=== PATIENT | female | born 1975 | race Caucasian/White ===

== ENCOUNTER 2016-10-06 17:33 | Emergency (ER) | payer OTHER, SELFPAY ==
--- NOTE | 2016-10-06 20:18 | EDDOCDS ---
Nurse's Notes [facility] Name: Sasha Calderon Age: 40 yrs Sex: Female : 1975 Arrival Date: 10/06/2016 Time: 17:33 Bed Triage 2 Private MD: [facility] - Adults Diagnosis: Acute nasopharyngitis [common cold] Presentation: 10/06 17:50 Presenting complaint: Patient states: she's sick - having lower abdominal pain - on her kcs sides - coughing. Positive home test. Adult Sepsis Screening: The patient does not have new or worsening altered mentation. Patient's respiratory rate is less than 22. Systolic blood pressure is greater than 100. Patient has a qSOFA score of 0- Negative Sepsis Screen. Suicide/Homicide risk assessment- the patient denies having any suicidal and/or homicidal ideations and does not present with any other emotional, behavioral or mental health complaints. 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 Transition of care: patient was not received from another setting of care. 17:50 Acuity: MARTHA Level 3 kcs 17:50 Method Of Arrival: Walkin/Carried/Asstd kcs Triage Assessment: 17:53 General: Appears comfortable, well developed, well nourished, well groomed, Behavior is kcs cooperative, pleasant. Pain: Location: sides of abdomen Pain currently is 5 out of 10 on a pain scale. HIV screening NA for this visit Offered previously. Neurological: Level of Consciousness is awake, alert. Respiratory: Airway is patent Respiratory effort is even, unlabored, Respiratory pattern is regular, symmetrical. Respiratory: harsh dry cough. Derm: Skin is intact, is healthy with good turgor, Skin is dry, Skin is normal. 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 Ventolin Rotahaler/Rotacaps Inhl 200 mcg daily 2. ProAir HFA 90 mcg/actuation inhalation HFAA 2 puffs every 4 hours as needed - PMHx: Asthma; - PSHx: none; - Social history: Smoking status: Patient uses tobacco products, light tobacco smoker. No barriers to communication noted, The patient speaks fluent Serbian. - Family history: No immediate family members are acutely ill. - : The pt / caregiver states he / she is not on anticoagulants. Home medication list is obtained from the patient, [employer] import data. - Exposure Risk Screening:: None identified. Screenin:15 Screening information is obtained from the patient. Fall risk: No risks identified. ld5 Assistance ADL's: requires no assistance with activities of daily living. Abuse/DV Screen: The patient / caregiver reports he/she is: not in a situation that causes fear, pain or injury. Nutritional screening: No deficits noted. Advance Directives: There is no active DNR order. home support is adequate. Assessment: 20:15 General: First contact with pt. Paperwork discussed with pt. Respirations easy and ld5 unlabored. Pt reports nasal congestion but was unsure of what medications she could take after positive test. Neurological: Level of Consciousness is awake, alert. : Denies vaginal bleeding. Vital Signs: 17:35 BP 117 / 80; Pulse 99; Resp 18; Temp 98.8(O); Pulse Ox 100% ; Weight 90.72 kg; Height 5 cmb ft. 10 in. (177.80 cm); Pain 5/10; 17:35 Body Mass Index 28.70 (90.72 kg, 177.80 cm) cmb Vitals: 17:35 Log In Time: October 06, 2016 at 17:30. cmb ED Course: 17:34 Patient visited by Colleen Guillen. cmb 17:34 Patient moved to Waiting cmb 17:35 [facility] is Private Physician. cmb 17:36 Patient moved to Pre RCE cmb 17:51 Triage Initiated kcs 19:02 Patient moved to Triage 2 rs3 20:00 Mitchel Wooten PA is PHCP. btw 20:00 Oscar Lopez DO is Attending Physician. btw 20:00 Patient visited by Mitchel Wooten PA. btw 20:09 [facility] is Referral Physician. btw 20:15 The patient / caregiver is instructed regarding the plan of care and ED course. ld5 20:15 No IV's were initiated during this patient's visit. No procedures done that require ld5 assistance. 20:17 Patient visited by Diana Parry RN. ld5 Order Results: There are currently no results for this order. Outcome: 20:10 Discharge ordered by Provider. [facility] 20:15 Discharge Assessment: Patient awake, alert and oriented x 3. No cognitive and/or ld5 functional deficits noted. Patient verbalized understanding of disposition instructions. patient administered narcotics - no. The following High Risk Discharge criteria are identified: None. Discharged to home ambulatory. Condition: stable. Discharge instructions given to patient, Instructed on discharge instructions, follow up and referral plans. Demonstrated understanding of instructions, Pt was receptive of discharge instructions/ teaching. No special radiology studies were completed. Property :Personal belongings accompany Pt. 20:17 Patient left the ED. ld5 Signatures: Lazara Ugalde RN RN kcs Meghann PeraltaRN RN rs3 Mitchel Wooten PA PA btw Diana Parry RN RN ld5 Colleen Guillen Corrections: (The following items were deleted from the chart) 17:58 17:50 Presenting complaint: Patient states: she's sick - having lower abdominal pain - kcs on her sides - coughing. kcs MTDD
--- NOTE | 2016-10-06 20:18 | EDDOCDS ---
Physician Documentation [facility] Name: Sasha Calderon Age: 40 yrs Sex: Female : 1975 Arrival Date: 10/06/2016 Time: 17:33 Bed Triage 2 Private MD: [facility] - Adults Disposition: 10/06/16 20:10 Discharged to Home/Self Care. Impression: Acute nasopharyngitis [common cold]. - Condition is Stable. - Discharge Instructions: Medicines During , Cool Mist Vaporizers, Upper Respiratory Infection, Adult, Lvth-[id number], Viral Infections, Iufo-Fe-Vrwd. - Medication Reconciliation, Local Pharmacy Hours form. - Follow up: [facility] - Adults; When: Call to arrange an appointment; Reason: Further diagnostic work-up, Recheck today's complaints, Continuance of care. - Problem is new. - Symptoms are unchanged. Historical: - Allergies: Codeine Sulfate (Rash); - Home Meds: 1. Ventolin Rotahaler/Rotacaps Inhl 200 mcg daily 2. ProAir HFA 90 mcg/actuation inhalation HFAA 2 puffs every 4 hours as needed - PMHx: Asthma; - PSHx: none; - Social history: Smoking status: Patient uses tobacco products, light tobacco smoker. No barriers to communication noted, The patient speaks fluent Saudi Arabian. - Family history: No immediate family members are acutely ill. - : The pt / caregiver states he / she is not on anticoagulants. Home medication list is obtained from the patient, [employer] import data. - Exposure Risk Screening:: None identified. 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 10 in. (177.80 cm); Pain 5/10; 17:35 Body Mass Index 28.70 (90.72 kg, 177.80 cm) cmb Signatures: Lazara Ugalde RN RN kcs Mitchel Wooten PA PA btw Diana ParryRN RN ld5 MTDD
--- NOTE | 2016-10-08 21:18 | EDDOCDS ---
Nurse's Notes [facility] Name: Sasha Calderon Age: 40 yrs Sex: Female : 1975 Arrival Date: 10/06/2016 Time: 17:33 Bed Triage 2 Private MD: [facility] - Adults Diagnosis: Acute nasopharyngitis [common cold] Presentation: 10/06 17:50 Presenting complaint: Patient states: she's sick - having lower abdominal pain - on her kcs sides - coughing. Positive home test. Adult Sepsis Screening: The patient does not have new or worsening altered mentation. Patient's respiratory rate is less than 22. Systolic blood pressure is greater than 100. Patient has a qSOFA score of 0- Negative Sepsis Screen. Suicide/Homicide risk assessment- the patient denies having any suicidal and/or homicidal ideations and does not present with any other emotional, behavioral or mental health complaints. 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 Transition of care: patient was not received from another setting of care. 17:50 Acuity: MARTHA Level 3 kcs 17:50 Method Of Arrival: Walkin/Carried/Asstd kcs Triage Assessment: 17:53 General: Appears comfortable, well developed, well nourished, well groomed, Behavior is kcs cooperative, pleasant. Pain: Location: sides of abdomen Pain currently is 5 out of 10 on a pain scale. HIV screening NA for this visit Offered previously. Neurological: Level of Consciousness is awake, alert. Respiratory: Airway is patent Respiratory effort is even, unlabored, Respiratory pattern is regular, symmetrical. Respiratory: harsh dry cough. Derm: Skin is intact, is healthy with good turgor, Skin is dry, Skin is normal. 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 Ventolin Rotahaler/Rotacaps Inhl 200 mcg daily 2. ProAir HFA 90 mcg/actuation inhalation HFAA 2 puffs every 4 hours as needed - PMHx: Asthma; - PSHx: none; - Social history: Smoking status: Patient uses tobacco products, light tobacco smoker. No barriers to communication noted, The patient speaks fluent Ukrainian. - Family history: No immediate family members are acutely ill. - : The pt / caregiver states he / she is not on anticoagulants. Home medication list is obtained from the patient, [employer] import data. - Exposure Risk Screening:: None identified. Screenin:15 Screening information is obtained from the patient. Fall risk: No risks identified. ld5 Assistance ADL's: requires no assistance with activities of daily living. Abuse/DV Screen: The patient / caregiver reports he/she is: not in a situation that causes fear, pain or injury. Nutritional screening: No deficits noted. Advance Directives: There is no active DNR order. home support is adequate. Assessment: 20:15 General: First contact with pt. Paperwork discussed with pt. Respirations easy and ld5 unlabored. Pt reports nasal congestion but was unsure of what medications she could take after positive test. Neurological: Level of Consciousness is awake, alert. : Denies vaginal bleeding. Vital Signs: 17:35 BP 117 / 80; Pulse 99; Resp 18; Temp 98.8(O); Pulse Ox 100% ; Weight 90.72 kg; Height 5 cmb ft. 10 in. (177.80 cm); Pain 5/10; 17:35 Body Mass Index 28.70 (90.72 kg, 177.80 cm) cmb Vitals: 17:35 Log In Time: October 06, 2016 at 17:30. cmb ED Course: 17:34 Patient visited by Colleen Guillen. cmb 17:34 Patient moved to Waiting cmb 17:35 [facility] is Private Physician. cmb 17:36 Patient moved to Pre RCE cmb 17:51 Triage Initiated kcs 19:02 Patient moved to Triage 2 rs3 20:00 Mitchel Wooten PA is PHCP. btw 20:00 Oscar Lopez DO is Attending Physician. btw 20:00 Patient visited by Mitchel Wooten PA. btw 20:09 [facility] is Referral Physician. btw 20:15 The patient / caregiver is instructed regarding the plan of care and ED course. ld5 20:15 No IV's were initiated during this patient's visit. No procedures done that require ld5 assistance. 20:17 Patient visited by Diana Parry RN. ld5 20:19 [facility] Payment Agreement was scanned into [employer] and attached to record. micah 10/07 10:17 T-Sheet-- Draft Copy was scanned into [employer] and attached to record. gb Order Results: There are currently no results for this order. Outcome: 10/06 20:10 Discharge ordered by Provider. btw 20:15 Discharge Assessment: Patient awake, alert and oriented x 3. No cognitive and/or ld5 functional deficits noted. Patient verbalized understanding of disposition instructions. patient administered narcotics - no. The following High Risk Discharge criteria are identified: None. Discharged to home ambulatory. Condition: stable. Discharge instructions given to patient, Instructed on discharge instructions, follow up and referral plans. Demonstrated understanding of instructions, Pt was receptive of discharge instructions/ teaching. No special radiology studies were completed. Property :Personal belongings accompany Pt. 20:17 Patient left the ED. ld5 Signatures: Lazara Ugalde, RN RN kcs Desi Daly, Reg Reg gb Meghann PeraltaRN RN rs3 Mitchel Wooten PA PA btw Diana Parry RN RN ld5 Colleen Guillen Gabriela gjb Corrections: (The following items were deleted from the chart) 17:58 17:50 Presenting complaint: Patient states: she's sick - having lower abdominal pain - kcs on her sides - coughing. kcs Chart Complete MTDD
--- NOTE | 2016-10-08 21:18 | EDDOCDS ---
Physician Documentation [facility] Name: Sasha Calderon Age: 40 yrs Sex: Female : 1975 Arrival Date: 10/06/2016 Time: 17:33 Bed Triage 2 Private MD: [facility] - Adults Disposition: 10/06/16 20:10 Discharged to Home/Self Care. Impression: Acute nasopharyngitis [common cold]. - Condition is Stable. - Discharge Instructions: Medicines During , Cool Mist Vaporizers, Upper Respiratory Infection, Adult, Vgms-ch-Yzoy, Viral Infections, Xyzb-Ni-Waaz. - Medication Reconciliation, Local Pharmacy Hours form. - Follow up: [facility] - Adults; When: Call to arrange an appointment; Reason: Further diagnostic work-up, Recheck today's complaints, Continuance of care. - Problem is new. - Symptoms are unchanged. Historical: - Allergies: Codeine Sulfate (Rash); - Home Meds: 1. Ventolin Rotahaler/Rotacaps Inhl 200 mcg daily 2. ProAir HFA 90 mcg/actuation inhalation HFAA 2 puffs every 4 hours as needed - PMHx: Asthma; - PSHx: none; - Social history: Smoking status: Patient uses tobacco products, light tobacco smoker. No barriers to communication noted, The patient speaks fluent Italian. - Family history: No immediate family members are acutely ill. - : The pt / caregiver states he / she is not on anticoagulants. Home medication list is obtained from the patient, [employer] import data. - Exposure Risk Screening:: None identified. 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 10 in. (177.80 cm); Pain 5/10; 17:35 Body Mass Index 28.70 (90.72 kg, 177.80 cm) cmb MDM: 20:19 [place] Payment Agreement was scanned into [employer] and attached to record. [facility] 20:19 Financial registration complete. [facility] 10/07 10:17 T-Sheet-- Draft Copy was scanned into [employer] and attached to record. gb Signatures: Lazara Ugalde, RN RN [facility] Desi Daly, Reg Reg gb Mitchel Wooten PA PA btw Diana Parry RN RN ld5 Shyann Mckeon The chart was reviewed and I authenticate all verbal orders and agree with the evaluation and treatment provided.Attachments: 10/06 20:19 [place] Payment Agreement gjb 10/07 10:17 T-Sheet-- Draft Copy gb Chart Complete MTDD
--- NOTE | 2016-10-08 21:18 | EDDOCDS ---
Physician Documentation [facility] Name: Sasha Calderon Age: 40 yrs Sex: Female : 1975 Arrival Date: 10/06/2016 Time: 17:33 Bed Triage 2 Private MD: [facility] - Adults Disposition: 10/06/16 20:10 Discharged to Home/Self Care. Impression: Acute nasopharyngitis [common cold]. - Condition is Stable. - Discharge Instructions: Medicines During , Cool Mist Vaporizers, Upper Respiratory Infection, Adult, Bcfu-pp-Nhcp, Viral Infections, Kbfn-Mg-Zwru. - Medication Reconciliation, Local Pharmacy Hours form. - Follow up: [facility] - Adults; When: Call to arrange an appointment; Reason: Further diagnostic work-up, Recheck today's complaints, Continuance of care. - Problem is new. - Symptoms are unchanged. Historical: - Allergies: Codeine Sulfate (Rash); - Home Meds: 1. Ventolin Rotahaler/Rotacaps Inhl 200 mcg daily 2. ProAir HFA 90 mcg/actuation inhalation HFAA 2 puffs every 4 hours as needed - PMHx: Asthma; - PSHx: none; - Social history: Smoking status: Patient uses tobacco products, light tobacco smoker. No barriers to communication noted, The patient speaks fluent Indonesian. - Family history: No immediate family members are acutely ill. - : The pt / caregiver states he / she is not on anticoagulants. Home medication list is obtained from the patient, [employer] import data. - Exposure Risk Screening:: None identified. 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 10 in. (177.80 cm); Pain 5/10; 17:35 Body Mass Index 28.70 (90.72 kg, 177.80 cm) cmb MDM: 20:19 [place] Payment Agreement was scanned into [employer] and attached to record. [facility] 20:19 Financial registration complete. [facility] 10/07 10:17 T-Sheet-- Draft Copy was scanned into [employer] and attached to record. gb Signatures: Lazara Ugalde, RN RN [facility] Desi Daly, Reg Reg gb Mitchel Wooten PA PA btw Diana Parry RN RN ld5 Shyann Mckeon The chart was reviewed and I authenticate all verbal orders and agree with the evaluation and treatment provided.Attachments: 10/06 20:19 [place] Payment Agreement gjb 10/07 10:17 T-Sheet-- Draft Copy gb Chart Complete MTDD
== END 2016-10-06 20:17 | disposition home or self-care (01) ==
LOC: M ED 17:33
DX: J06.9 Acute upper respiratory infection, unspecified (principal); J45.909 Unspecified asthma, uncomplicated; F17.210 Nicotine dependence, cigarettes, uncomplicated; Z88.5 Allergy status to narcotic agent

== ENCOUNTER 2016-11-08 09:23 | Emergency (ER) | payer OTHER ==
[~2016-11-08] VITALS: Ht 177.8 cm; Wt 79.4 kg
[2016-11-08] MEDS ORDERED: BUDESONIDE 0.5 MG/2 ML INHALATION SUSPENSION INH ONE (10:00)
--- NOTE | 2016-11-08 10:34 | EDDOCDS ---
Nurse's Notes [facility] Name: Sasha Calderon Age: 40 yrs Sex: Female : 1975 Arrival Date: 11/08/2016 Time: 09:23 Bed PD Private MD: [facility] - Adults Diagnosis: Unspecified asthma with (acute) exacerbation Presentation: 11/08 09:28 Presenting complaint: Patient states: unable to breath today, woke with symptoms. kr3 Patient is aware she is hyperventilating and unable to correct. cold symptoms for several days. Adult Sepsis Screening: The patient does not have new or worsening altered mentation. Patient's respiratory rate is less than 22. Systolic blood pressure is greater than 100. Patient has a qSOFA score of 0- Negative Sepsis Screen. Suicide/Homicide risk assessment- the patient denies having any suicidal and/or homicidal ideations and does not present with any other emotional, behavioral or mental health complaints. 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 Transition of care: patient was not received from another setting of care. 09:28 Acuity: MARTHA Level 3 kr3 09:28 Method Of Arrival: Wheelchair kr3 Triage Assessment: 09:31 General: Appears distressed, Behavior is cooperative. Pain: Denies pain. HIV screening kr3 NA for this visit Offered previously. Neurological: Level of Consciousness is awake, alert. EENT: Reports nasal congestion. Respiratory: Airway is patent Respiratory effort is labored, Reports shortness of breath cough that is non-productive. Derm: Skin is normal. 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 albuterol sulfate 90 mcg/actuation Inhl HFAA 2 puffs (Last dose: 11/08/2016 09:30) - PMHx: Asthma; - PSHx: none; - Social history: Smoking status: Patient uses tobacco products, current every day smoker. No barriers to communication noted, The patient speaks fluent Irish, Speaks appropriately for age. - Family history: Not pertinent. - : The pt / caregiver states he / she is not on anticoagulants. Home medication list is obtained from the patient. - Exposure Risk Screening:: None identified. Screenin:41 Screening information is obtained from the patient. Fall risk: No risks identified. kr3 Assistance ADL's: requires no assistance with activities of daily living. Abuse/DV Screen: The patient / caregiver reports he/she is: not in a situation that causes fear, pain or injury. Nutritional screening: No deficits noted. Advance Directives: Currently, there is no health care proxy. home support is adequate. Assessment: 09:56 General: Appears in no apparent distress, Behavior is anxious, appropriate for age, srm cooperative. Neurological: No deficits noted. Respiratory: Airway is patent Respiratory effort is even, unlabored, Breath sounds are clear bilaterally. dry cough. Derm: No deficits noted. 10:32 Reassessment: Patient states feeling better. kr3 Vital Signs: 09:25 BP 109 / 69; Pulse 96; Resp 18; Temp 98.3(O); Pulse Ox 98% ; Weight 79.38 kg (R); ct3 Height 5 ft. 10 in. (177.80 cm) (R); Pain 9/10; 10:31 BP 110 / 68; Pulse 82; Resp 16; Temp 97.6(T); Pulse Ox 95% on R/A; kr3 09:25 Body Mass Index 25.11 (79.38 kg, 177.80 cm) ct3 Vitals: 09:25 Log In Time: November 08, 2016 at 09:22. ct3 09:56 Heart Tones 171BPM. [facility] ED Course: 09:24 Patient visited by Helga Garcia PCA. ct3 09:24 [facility] is Private Physician. ct3 09:24 Patient moved to Waiting ct3 09:25 Patient moved to Pre RCE ct3 09:28 Patient moved to Triage 3 kr3 09:30 Triage Initiated kr3 09:39 Palmer Penn PA-C is PHCP. cc10 09:39 Berry Zabala MD is Attending Physician. cc10 09:39 Patient visited by Palmer Penn PA-C. cc10 09:39 Patient visited by Palmer Penn PA-C. cc10 09:48 Patient moved to PD2 / mcp 09:57 Patient visited by Rayna Colorado RN. srm 10:22 [facility] is Referral Physician. cc10 10:32 The patient / caregiver is instructed regarding the plan of care and ED course. Patient kr3 has correct armband on for positive identification. 10:32 No IV's were initiated during this patient's visit. No procedures done that require kr3 assistance. Administered Medications: 10:18 Drug: Pulmicort 1 mg Route: Inhalation; cc10 RT: 10:18 Initial Med Neb Given as ordered Patient was instructed and evaluated on procedure. kt1 Respiratory: Breath sounds are diminished bilaterally. Order Results: There are currently no results for this order. Outcome: 10:22 Discharge ordered by Provider. cc10 10:32 Discharge Assessment: patient administered narcotics - no. The following High Risk kr3 Discharge criteria are identified: None. Discharged to home ambulatory. Condition: stable. Discharge instructions given to patient, Instructed on discharge instructions, follow up and referral plans. Demonstrated understanding of instructions, medications, Pt was receptive of discharge instructions/ teaching. Prescriptions given X 2. No special radiology studies were completed. Property sent home with patient. 10:33 Patient left the ED. kr3 Signatures: Rayna Colorado, RN RN Joleen De La Cruz, RN Dina Emery mcp kt1 Marilu Flores RN RN kr3 Helga Garcia, CLINICAL OPERATIONS SPECIALIST CLINICAL OPERATIONS SPECIALIST ct3 Palmer Penn PA-C PA-C cc10 MTDD
--- NOTE | 2016-11-08 10:34 | EDDOCDS ---
Physician Documentation [facility] Name: Sasha Calderon Age: 40 yrs Sex: Female : 1975 Arrival Date: 11/08/2016 Time: 09:23 Bed PD Private MD: [facility] - Adults Disposition: 11/08/16 10:22 Discharged to Home/Self Care. Impression: Unspecified asthma with (acute) exacerbation. - Condition is Stable. - Discharge Instructions: Asthma, Adult. - Prescriptions for Pulmicort 0.5 mg/2 mL Inhalation suspension for nebulization - inhale 2 milliliter by NEBULIZATION route 2 times per day As needed; 1 box. dextromethorphan- guaifenesin 30-200 mg/5 mL Oral liquid - take 5 milliliter by ORAL route every 6 hours As needed as needed; 100 milliliter. - Medication Reconciliation form. - Follow up: [facility] - Adults; When: Call to arrange an appointment; Reason: Wound/Symptom Recheck, Recheck today's complaints, Continuance of care. - Problem is an acute exacerbation. - Symptoms have improved. Historical: - Allergies: Codeine Sulfate (Rash); - Home Meds: 1. albuterol sulfate 90 mcg/actuation Inhl HFAA 2 puffs (Last dose: 11/08/2016 09:30) - PMHx: Asthma; - PSHx: none; - Social history: Smoking status: Patient uses tobacco products, current every day smoker. No barriers to communication noted, The patient speaks fluent Telugu, Speaks appropriately for age. - Family history: Not pertinent. - : The pt / caregiver states he / she is not on anticoagulants. Home medication list is obtained from the patient. - Exposure Risk Screening:: None identified. 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 10 in. (177.80 cm) (R); Pain 9/10; 10:31 BP 110 / 68; Pulse 82; Resp 16; Temp 97.6(T); Pulse Ox 95% on R/A; kr3 09:25 Body Mass Index 25.11 (79.38 kg, 177.80 cm) ct3 MDM: 09:47 Pulmicort 1 mg Inhalation once ordered. cc10 09:47 Call Respiratory ordered. cc10 09:48 Call Respiratory complete. [facility] 09:49 Heart Tones ordered. cc10 10:15 Financial registration complete. lg Administered Medications: 10:18 Drug: Pulmicort 1 mg Route: Inhalation; cc10 Signatures: Rayna Colorado, RN RN srm Joleen Burger RN RN mcp Beny Ellis, Reg Reg lg Marilu Flores RN RN kr3 Palmer Penn, PAGurpreet PAParrishC cc10 MTDD
--- NOTE | 2016-11-10 11:33 | EDDOCDS ---
Physician Documentation [facility] Name: Sasha Calderon Age: 40 yrs Sex: Female : 1975 Arrival Date: 11/08/2016 Time: 09:23 Bed PD Private MD: [facility] - Adults Disposition: 11/08/16 10:22 Discharged to Home/Self Care. Impression: Unspecified asthma with (acute) exacerbation. - Condition is Stable. - Discharge Instructions: Asthma, Adult. - Prescriptions for Pulmicort 0.5 mg/2 mL Inhalation suspension for nebulization - inhale 2 milliliter by NEBULIZATION route 2 times per day As needed; 1 box. dextromethorphan- guaifenesin 30-200 mg/5 mL Oral liquid - take 5 milliliter by ORAL route every 6 hours As needed as needed; 100 milliliter. - Medication Reconciliation form. - Follow up: [facility] - Adults; When: Call to arrange an appointment; Reason: Wound/Symptom Recheck, Recheck today's complaints, Continuance of care. - Problem is an acute exacerbation. - Symptoms have improved. Historical: - Allergies: Codeine Sulfate (Rash); - Home Meds: 1. albuterol sulfate 90 mcg/actuation Inhl HFAA 2 puffs (Last dose: 11/08/2016 09:30) - PMHx: Asthma; - PSHx: none; - Social history: Smoking status: Patient uses tobacco products, current every day smoker. No barriers to communication noted, The patient speaks fluent Ukrainian, Speaks appropriately for age. - Family history: Not pertinent. - : The pt / caregiver states he / she is not on anticoagulants. Home medication list is obtained from the patient. - Exposure Risk Screening:: None identified. 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 10 in. (177.80 cm) (R); Pain 9/10; 10:31 BP 110 / 68; Pulse 82; Resp 16; Temp 97.6(T); Pulse Ox 95% on R/A; kr3 09:25 Body Mass Index 25.11 (79.38 kg, 177.80 cm) ct3 MDM: 09:47 Pulmicort 1 mg Inhalation once ordered. cc10 09:47 Call Respiratory ordered. cc10 09:48 Call Respiratory complete. [facility] 09:49 Heart Tones ordered. cc10 10:15 Financial registration complete. 10:54 [facility] Payment Agreement was scanned into [employer] and attached to record. 11/09 10:58 T-Sheet-- Draft Copy was scanned into [employer] and attached to record. gb Administered Medications: 11/08 10:18 Drug: Pulmicort 1 mg Route: Inhalation; cc10 Signatures: Rayna Colorado, RN Joleen Zapata RN Desi Steele mcp, Reg Reg gb Beny Ellis, Reg Reg lg Marilu Flores RN RN kr3 Palmer Penn, PA-C PA-C cc10 The chart was reviewed and I authenticate all verbal orders and agree with the evaluation and treatment provided.Attachments: 10:54 [facility] Payment Agreement 11/09 10:58 T-Sheet-- Draft Copy gb Chart Complete MTDD
--- NOTE | 2016-11-10 11:33 | EDDOCDS ---
Physician Documentation [facility] Name: Sasha Calderon Age: 40 yrs Sex: Female : 1975 Arrival Date: 11/08/2016 Time: 09:23 Bed PD Private MD: [facility] - Adults Disposition: 11/08/16 10:22 Discharged to Home/Self Care. Impression: Unspecified asthma with (acute) exacerbation. - Condition is Stable. - Discharge Instructions: Asthma, Adult. - Prescriptions for Pulmicort 0.5 mg/2 mL Inhalation suspension for nebulization - inhale 2 milliliter by NEBULIZATION route 2 times per day As needed; 1 box. dextromethorphan- guaifenesin 30-200 mg/5 mL Oral liquid - take 5 milliliter by ORAL route every 6 hours As needed as needed; 100 milliliter. - Medication Reconciliation form. - Follow up: [facility] - Adults; When: Call to arrange an appointment; Reason: Wound/Symptom Recheck, Recheck today's complaints, Continuance of care. - Problem is an acute exacerbation. - Symptoms have improved. Historical: - Allergies: Codeine Sulfate (Rash); - Home Meds: 1. albuterol sulfate 90 mcg/actuation Inhl HFAA 2 puffs (Last dose: 11/08/2016 09:30) - PMHx: Asthma; - PSHx: none; - Social history: Smoking status: Patient uses tobacco products, current every day smoker. No barriers to communication noted, The patient speaks fluent Lithuanian, Speaks appropriately for age. - Family history: Not pertinent. - : The pt / caregiver states he / she is not on anticoagulants. Home medication list is obtained from the patient. - Exposure Risk Screening:: None identified. 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 10 in. (177.80 cm) (R); Pain 9/10; 10:31 BP 110 / 68; Pulse 82; Resp 16; Temp 97.6(T); Pulse Ox 95% on R/A; kr3 09:25 Body Mass Index 25.11 (79.38 kg, 177.80 cm) ct3 MDM: 09:47 Pulmicort 1 mg Inhalation once ordered. cc10 09:47 Call Respiratory ordered. cc10 09:48 Call Respiratory complete. [facility] 09:49 Heart Tones ordered. cc10 10:15 Financial registration complete. 10:54 [facility] Payment Agreement was scanned into [employer] and attached to record. 11/09 10:58 T-Sheet-- Draft Copy was scanned into [employer] and attached to record. gb Administered Medications: 11/08 10:18 Drug: Pulmicort 1 mg Route: Inhalation; cc10 Signatures: Rayna Colorado, RN Joleen Zapata RN Desi Steele mcp, Reg Reg gb Beny Ellis, Reg Reg lg Marilu Flores RN RN kr3 Palmer Penn, PA-C PA-C cc10 The chart was reviewed and I authenticate all verbal orders and agree with the evaluation and treatment provided.Attachments: 10:54 [facility] Payment Agreement 11/09 10:58 T-Sheet-- Draft Copy gb Chart Complete MTDD
--- NOTE | 2016-11-10 11:34 | EDDOCDS ---
Nurse's Notes [facility] Name: Sasha Calderon Age: 40 yrs Sex: Female : 1975 Arrival Date: 11/08/2016 Time: 09:23 Bed PD Private MD: [facility] - Adults Diagnosis: Unspecified asthma with (acute) exacerbation Presentation: 11/08 09:28 Presenting complaint: Patient states: unable to breath today, woke with symptoms. kr3 Patient is aware she is hyperventilating and unable to correct. cold symptoms for several days. Adult Sepsis Screening: The patient does not have new or worsening altered mentation. Patient's respiratory rate is less than 22. Systolic blood pressure is greater than 100. Patient has a qSOFA score of 0- Negative Sepsis Screen. Suicide/Homicide risk assessment- the patient denies having any suicidal and/or homicidal ideations and does not present with any other emotional, behavioral or mental health complaints. Status: Patient is not a social service manager or dependent. Transition of care: patient was not received from another setting of care. 09:28 Acuity: MARTHA Level 3 kr3 09:28 Method Of Arrival: Wheelchair kr3 Triage Assessment: 09:31 General: Appears distressed, Behavior is cooperative. Pain: Denies pain. HIV screening kr3 NA for this visit Offered previously. Neurological: Level of Consciousness is awake, alert. EENT: Reports nasal congestion. Respiratory: Airway is patent Respiratory effort is labored, Reports shortness of breath cough that is non-productive. Derm: Skin is normal. 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 albuterol sulfate 90 mcg/actuation Inhl HFAA 2 puffs (Last dose: 11/08/2016 09:30) - PMHx: Asthma; - PSHx: none; - Social history: Smoking status: Patient uses tobacco products, current every day smoker. No barriers to communication noted, The patient speaks fluent Central African, Speaks appropriately for age. - Family history: Not pertinent. - : The pt / caregiver states he / she is not on anticoagulants. Home medication list is obtained from the patient. - Exposure Risk Screening:: None identified. Screenin:41 Screening information is obtained from the patient. Fall risk: No risks identified. kr3 Assistance ADL's: requires no assistance with activities of daily living. Abuse/DV Screen: The patient / caregiver reports he/she is: not in a situation that causes fear, pain or injury. Nutritional screening: No deficits noted. Advance Directives: Currently, there is no health care proxy. home support is adequate. Assessment: 09:56 General: Appears in no apparent distress, Behavior is anxious, appropriate for age, srm cooperative. Neurological: No deficits noted. Respiratory: Airway is patent Respiratory effort is even, unlabored, Breath sounds are clear bilaterally. dry cough. Derm: No deficits noted. 10:32 Reassessment: Patient states feeling better. kr3 Vital Signs: 09:25 BP 109 / 69; Pulse 96; Resp 18; Temp 98.3(O); Pulse Ox 98% ; Weight 79.38 kg (R); ct3 Height 5 ft. 10 in. (177.80 cm) (R); Pain 9/10; 10:31 BP 110 / 68; Pulse 82; Resp 16; Temp 97.6(T); Pulse Ox 95% on R/A; kr3 09:25 Body Mass Index 25.11 (79.38 kg, 177.80 cm) ct3 Vitals: 09:25 Log In Time: November 08, 2016 at 09:22. ct3 09:56 Heart Tones 171BPM. [facility] ED Course: 09:24 Patient visited by Helga Garcia PCA. ct3 09:24 [facility] is Private Physician. ct3 09:24 Patient moved to Waiting ct3 09:25 Patient moved to Pre RCE ct3 09:28 Patient moved to Triage 3 kr3 09:30 Triage Initiated kr3 09:39 Palmer Penn PA-C is PHCP. cc10 09:39 Berry Zabala MD is Attending Physician. cc10 09:39 Patient visited by Palmer Penn PA-C. cc10 09:39 Patient visited by Palmer Penn PA-C. cc10 09:48 Patient moved to PD2 / mcp 09:57 Patient visited by Rayna Colorado RN. srm 10:22 [facility] is Referral Physician. cc10 10:32 The patient / caregiver is instructed regarding the plan of care and ED course. Patient cedric3 has correct armband on for positive identification. 10:32 No IV's were initiated during this patient's visit. No procedures done that require kr3 assistance. 10:54 [facility] Payment Agreement was scanned into [employer] and attached to record. lg 11/09 10:58 T-Sheet-- Draft Copy was scanned into [employer] and attached to record. gb Administered Medications: 11/08 10:18 Drug: Pulmicort 1 mg Route: Inhalation; cc10 RT: 10:18 Initial Med Neb Given as ordered Patient was instructed and evaluated on procedure. kt1 Respiratory: Breath sounds are diminished bilaterally. Order Results: There are currently no results for this order. Outcome: 10:22 Discharge ordered by Provider. cc10 10:32 Discharge Assessment: patient administered narcotics - no. The following High Risk kr3 Discharge criteria are identified: None. Discharged to home ambulatory. Condition: stable. Discharge instructions given to patient, Instructed on discharge instructions, follow up and referral plans. Demonstrated understanding of instructions, medications, Pt was receptive of discharge instructions/ teaching. Prescriptions given X 2. No special radiology studies were completed. Property sent home with patient. 10:33 Patient left the ED. kr3 Signatures: Rayna Colorado, RN Joleen Zapata, RN RN [facility] Desi Daly, Reg Reg gb Beny Ellis, Reg Reg lg Dina Celeste kt1 Marilu Flores,RN RN kr3 Helga Garcia, ROUTE CDL DRIVER ROUTE CDL DRIVER ct3 Palmer Penn, PA-C PA-C cc10 Chart Complete MTDD
== END 2016-11-08 10:33 | disposition home or self-care (01) ==
LOC: M ED 09:23
DX: O99.512 Diseases of the respiratory system complicating pregnancy, second trimester (principal); J45.901 Unspecified asthma with (acute) exacerbation; J06.9 Acute upper respiratory infection, unspecified; Z3A.17 17 weeks gestation of pregnancy; O99.332 Smoking (tobacco) complicating pregnancy, second trimester; F17.210 Nicotine dependence, cigarettes, uncomplicated; Z88.5 Allergy status to narcotic agent

== ENCOUNTER 2016-11-15 11:32 | Emergency (ER) | payer OTHER ==
[2016-11-15 13:16] LABS: BASO % 0.3 % (0.0-1.0); EOS # 0.2 K/mm3 (0.0-0.50); EOS % 1.6 % (0.0-3.0); LARGE UNSTAINED CELL # 0.1 K/mm3 (0.0-0.4); LARGE UNSTAINED CELL % 1.5 % (0.0-4.0); LYMPH # 1.3 K/mm3 (1.5-4.5); MEAN CORPUSCULAR HEMOGLOBIN 30.1 pg (27.0-33.0); MEAN CORPUSCULAR HGB CONC 33.9 g/dl (32.0-36.5); MEAN CORPUSCULAR VOLUME 88.8 fl (80.0-96.0); MONO # 0.8 K/mm3 (0.0-0.8); MONO % 8.2 % (0.0-5.0); NEUTROPHILS # 7.3 K/mm3 (1.8-7.7); NEUTROPHILS % 76.5 % (36.0-66.0); PLATELET COUNT, AUTOMATED 362 k/mm3 (150-450); RED CELL DISTRIBUTION WIDTH 14.6 % (11.5-14.5); WHITE BLOOD COUNT 9.5 K/mm3 (4.0-10.0)
--- NOTE | 2016-11-15 13:21 | REP ---
Clinical: Shortness of breath. Technique: PA and lateral. Comparison: 08/03/2016. Findings: Trace basilar atelectasis cannot be excluded. Mediastinum and cardiac silhouette are normal. No consolidation, effusion, or pneumothorax. Skeletal structures intact. Impression: Trace basilar atelectasis. Signed by Henrik Koch MD 11/15/2016 01:13 P
[2016-11-15 13:32] LABS: ALBUMIN 2.7 GM/DL (3.2-5.2); ALBUMIN/GLOBULIN RATIO 0.64 (1.00-1.93); ALKALINE PHOSPHATASE 131 U/L (45-117); ALT/SGPT 15 U/L (12-78); ANION GAP 10 MEQ/L (8-16); AST/SGOT 18 U/L (15-37); BILIRUBIN,TOTAL 0.3 MG/DL (0.2-1.0); BLOOD UREA NITROGEN 5 MG/DL (7-18); CALCIUM LEVEL 8.5 MG/DL (8.5-10.1); CARBON DIOXIDE LEVEL 23 MEQ/L (21-32); CHLORIDE LEVEL 103 MEQ/L (98-107); GLOMERULAR FILTRATION RATE > 60.0 (>58); GLUCOSE, FASTING 78 MG/DL (70-105); POTASSIUM SERUM 3.9 MEQ/L (3.5-5.1); SODIUM LEVEL 136 MEQ/L (136-145); TOTAL PROTEIN 6.9 GM/DL (6.4-8.2)
--- NOTE | 2016-11-15 13:43 | REP ---
Clinical: Pain and swelling . Technique: Sun scale and color Doppler evaluation using linear high frequency transducer. Findings: Ultrasound examination of the right lower extremity deep venous structures from the common femoral vein to the popliteal vein demonstrates normal compressibility flow and wave patterns in response to respiration and augmentation. There is no evidence for deep venous thrombosis. Incidental note is made of right inguinal lymph node measuring 18 x 25 x 7 mm Impression: No evidence for deep venous thrombosis. Signed by Henrik Koch MD 11/15/2016 01:35 P
[2016-11-15] MEDS ORDERED: ALBUTEROL SULFATE 2.5 MG/0.5 ML INH NEB SOLN As Ordered ONE (15:01)
[2016-11-15] MEDS ORDERED: ISOVUE-370 76% 100ML VIAL (Q9967) As Ordered ONE (15:22)
--- NOTE | 2016-11-15 16:35 | REP ---
Clinical: Acute chest pain and shortness of breath. Technique: Axial contrast enhanced images from the thoracic inlet to the upper abdomen using 100 ml Isovue 370 intravenous contrast material with coronal and sagittal re-formations. Findings: Satisfactory enhancement of the pulmonary vasculature is achieved and no filling defects are identified to suggest pulmonary embolus. Thoracic aorta is normal caliber without aneurysm or dissection. Heart and pericardium are normal. Bilateral lung carl are well aerated and without acute pulmonary parenchymal consolidation. Trace left basilar atelectasis appreciated. No nodule or mass lesion. No pleural effusion/reaction. No pneumothorax. No adenopathy. Impression: No evidence for pulmonary embolus. Trace left basilar atelectasis. Signed by Henrik Koch MD 11/15/2016 04:26 P
[2016-11-15] MEDS ORDERED: AMOXICILLIN 500 MG CAP As Ordered ONE (17:24)
[2016-11-15] MEDS ORDERED: ACETAMINOPHEN 325 MG TAB As Ordered ONE (17:25)
--- NOTE | 2016-11-15 17:35 | EDDOCDS ---
Nurse's Notes [facility] Name: Sasha Calderon Age: 40 yrs Sex: Female : 1975 Arrival Date: 11/15/2016 Time: 11:32 Bed I5 / M5 Private MD: Tomás Watkins Diagnosis: Pain in right lower leg-No DVT on Ultrasound today;Acute bronchitis-No PE on CT today;Asthma;Atelectasis Presentation: 11/15 11:46 Presenting complaint: Patient states: she was f/uing up with her PCP and was having kcs pain in her right foot and leg - so they are concerned that she may have a blood clot - also her breathing is not getting any better from her last visit here and has been using her rescue inhaler more than she should. Pain in right leg is constant and she has difficulty putting her foot down. Adult Sepsis Screening: The patient does not have new or worsening altered mentation. Patient's respiratory rate is less than 22. Systolic blood pressure is greater than 100. Patient has a qSOFA score of 0- Negative Sepsis Screen. Suicide/Homicide risk assessment- the patient denies having any suicidal and/or homicidal ideations and does not present with any other emotional, behavioral or mental health complaints. Status: Patient is not a retail service representative or dependent. Transition of care: patient was received from a primary care office; [facility]. 11:46 Acuity: MARTHA Level 3 kcs 11:46 Method Of Arrival: Walkin/Carried/Asstd kcs Triage Assessment: 11:49 General: Appears comfortable, well developed, well nourished, well groomed, Behavior is kcs cooperative, pleasant. Pain: Location: right lower leg Pain currently is 8 out of 10 on a pain scale. HIV screening NA for this visit Offered previously. Neurological: Level of Consciousness is awake, alert. Respiratory: Airway is patent Respiratory effort is even, unlabored, Respiratory pattern is regular, symmetrical. Derm: Skin is intact, is healthy with good turgor, Skin is dry, Skin is normal. 17:32 Respiratory: Onset: The symptoms/episode began/occurred at an unknown time. 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 albuterol sulfate 90 mcg/actuation Inhl HFAA 2 puffs every 4 hours as needed - PMHx: Asthma; - PSHx: none; - Social history: Smoking status: Patient uses tobacco products, light tobacco smoker. No barriers to communication noted, The patient speaks fluent Hebrew. - Family history: No immediate family members are acutely ill. - : The pt / caregiver states he / she is not on anticoagulants. Home medication list is obtained from the patient, [employer] import data. - Exposure Risk Screening:: None identified. Screenin:04 Screening information is obtained from the patient. Fall risk: No risks identified. hs1 Assistance ADL's: requires no assistance with activities of daily living. Abuse/DV Screen: The patient / caregiver reports he/she is: not in a situation that causes fear, pain or injury. Nutritional screening: No deficits noted. Advance Directives: There is no active DNR order. home support is adequate. Assessment: 13:03 General: Appears in no apparent distress, Behavior is appropriate for age, cooperative. hs1 Pain:. Cardiovascular: Capillary refill < 3 seconds Rhythm is regular. Cardiovascular: Chest pain is denied. Respiratory: Airway is patent Respiratory effort is even, unlabored, Respiratory pattern is regular, symmetrical, Breath sounds are clear bilaterally. Reports cough that is productive. Derm: Skin is pink, warm & dry. normal. 14:27 General: Appears in no apparent distress, Behavior is appropriate for age, cooperative. hs1 Pain: Location: medial aspect of right foot Pain radiates to right calf and right cole Quality of pain is described as burning. Respiratory: Airway is patent Respiratory effort is even, unlabored, Respiratory pattern is regular, symmetrical. 15:45 Reassessment: Patient appears in no apparent distress at this time. patient aware of hs1 needing CT. Pain 7/10 in foot when standing. . 16:25 Pain: Location: right foot and right leg Pain currently is 8 out of 10 on a pain scale. hs1 Cardiovascular: No deficits noted. Respiratory: No deficits noted. Derm: Skin is pink, warm & dry. normal. 17:30 General: Appears in no apparent distress, comfortable, Behavior is appropriate for age, hs1 cooperative. Pain: Location: right cole and right leg Pain currently is 8 out of 10 on a pain scale. Quality of pain is described as burning. Respiratory: No deficits noted. Vital Signs: 11:34 BP 107 / 67; Pulse 84; Resp 18 S; Temp 97.3(O); Pulse Ox 98% on R/A; Weight 86.18 kg gr2 (R); Height 5 ft. 10 in. (177.80 cm) (R); Pain 8/10; 16:55 BP 109 / 69; Pulse 64; Resp 18; Temp 97.9(O); Pulse Ox 97% on R/A; Pain 9/10; jml1 11:34 Body Mass Index 27.26 (86.18 kg, 177.80 cm) gr2 Vitals: 11:34 Log In Time: November 15, 2016 at 11:34. gr2 ED Course: 11:33 Patient visited by Armani Victoria. gr2 11:33 Patient moved to Waiting gr2 11:34 [facility] is Private Physician. gr2 11:34 Tomás Watkins is Private Physician. gr2 11:36 Patient visited by Armani Victoria. gr2 11:36 Patient moved to Pre RCE gr2 11:48 Triage Initiated kcs 12:45 Luana Harrell PA-C is PHCP. ef1 12:45 Genesis Devine MD is Attending Physician. ef1 12:46 Rema Mcintosh, ABIMAEL is Primary Nurse. ef1 12:46 Patient visited by Luana Harrell PA-C. ef1 12:46 Patient moved to I5 / ef1 12:50 Inserted saline lock: 20 gauge in left antecubital area and blood collected. The hs1 patient tolerated the procedure well. 13:01 D-Dimer Quant Sent. hs1 13:01 Complete Comphrensive Metabolic Sent. hs1 13:01 CBC with Diff Sent. hs1 13:03 Patient moved to Ultrasound hs1 13:59 Chest, 2 View (pa\E\lat) Returned. EDMS 13:59 DVT US Lower Returned. EDMS 14:22 Patient moved to I5 / hs1 14:23 Patient visited by Rema Mcintosh, ABIMAEL. hs1 14:27 The patient / caregiver is instructed regarding the plan of care and ED course. hs1 14:56 Patient visited by Luana Harrell PA-C. ef1 15:20 Patient visited by Luana Harrell PA-C. ef1 16:10 Patient visited by Rema Mcintosh RN. hs1 16:13 [facility] Payment Agreement was scanned into [employer] and attached to record. zo 16:45 Patient visited by Luana Harrell PA-C. ef1 16:55 Patient visited by Regino Amezquita. jml1 17:03 Tomás Watkins is Referral Physician. ef1 17:07 Your Refining Equipment Operator is Referral Physician. ef1 17:24 CT Chest Angio R/O PE Returned. EDMS 17:31 Discontinued IV lock intact, bleeding controlled, pressure dressing applied, No hs1 redness/swelling at site. No procedures done that require assistance. Administered Medications: 15:01 CANCELLED (Duplicate Order): Albuterol 5 mg Nebulizer once ef1 15:04 Drug: Albuterol 2.5 mg [albuterol sulfate 2.5 mg/0.5 mL solution for nebulization (0.5 jh6 mL)] Route: Nebulizer; 17:34 Drug: Amoxicillin 500 mg [amoxicillin 500 mg capsule (1 caps)] Route: PO; hs1 17:34 Drug: Acetaminophen 650 mg [acetaminophen 325 mg tablet (2 tabs)] Route: PO; hs1 RT: 15:04 Respiratory: Airway is patent Respiratory effort is even, unlabored, Respiratory jh6 pattern is regular symmetrical, Breath sounds are clear in left posterior upper lobe, right posterior upper lobe, left posterior lower lobe, right posterior middle lobe and right posterior lower lobe. 15:18 Respiratory: Airway is patent Respiratory effort is even, unlabored, Respiratory jh6 pattern is regular symmetrical, Breath sounds are clear in left posterior upper lobe, right posterior upper lobe, left posterior lower lobe, right posterior middle lobe and right posterior lower lobe. Order Results: Lab Order: CBC with Diff; SPEC'M 11/15/16 13:00 Test: WHITE BLOOD COUNT; Value: 9.5; Range: 4.0-10.0; Units: K/mm3; Status: F Test: RED BLOOD COUNT; Value: 4.07; Range: 4.00-5.40; Units: M/mm3; Status: F Test: HEMOGLOBIN; Value: 12.3; Range: 12.0-16.0; Units: g/dl; Status: F Test: HEMATOCRIT; Value: 36.1; Range: 36.0-47.0; Units: %; Status: F Test: MEAN CORPUSCULAR VOLUME; Value: 88.8; Range: 80.0-96.0; Units: fl; Status: F Test: MEAN CORPUSCULAR HEMOGLOBIN; Value: 30.1; Range: 27.0-33.0; Units: pg; Status: F Test: MEAN CORPUSCULAR HGB CONC; Value: 33.9; Range: 32.0-36.5; Units: g/dl; Status: F Test: RED CELL DISTRIBUTION WIDTH; Value: 14.6; Range: 11.5-14.5; Abnormal: Above high normal; Units: %; Status: F Test: PLATELET COUNT, AUTOMATED; Value: 362; Range: 150-450; Units: k/mm3; Status: F Test: NEUTROPHILS %; Value: 76.5; Range: 36.0-66.0; Abnormal: Above high normal; Units: %; Status: F Test: LYMPH %; Value: 12.0; Range: 24.0-44.0; Abnormal: Below low normal; Units: %; Status: F Test: MONO %; Value: 8.2; Range: 0.0-5.0; Abnormal: Above high normal; Units: %; Status: F Test: EOS %; Value: 1.6; Range: 0.0-3.0; Units: %; Status: F Test: BASO %; Value: 0.3; Range: 0.0-1.0; Units: %; Status: F Test: LARGE UNSTAINED CELL %; Value: 1.5; Range: 0.0-4.0; Units: %; Status: F Test: NEUTROPHILS #; Value: 7.3; Range: 1.8-7.7; Units: K/mm3; Status: F Test: LYMPH #; Value: 1.3; Range: 1.5-4.5; Abnormal: Below low normal; Units: K/mm3; Status: F Test: MONO #; Value: 0.8; Range: 0.0-0.8; Units: K/mm3; Status: F Test: EOS #; Value: 0.2; Range: 0.0-0.50; Units: K/mm3; Status: F Test: BASO #; Value: 0.0; Range: 0.0-0.2; Units: K/mm3; Status: F Test: LARGE UNSTAINED CELL #; Value: 0.1; Range: 0.0-0.4; Units: K/mm3; Status: F Lab Order: Complete Comphrensive Metabolic; SPEC'M 11/15/16 13:00 Test: GLUCOSE, FASTING; Value: 78; Range: 70-105; Units: MG/DL; Status: F Test: BLOOD UREA NITROGEN; Value: 5; Range: 7-18; Abnormal: Below low normal; Units: MG/DL; Status: F Test: CREATININE FOR GFR; Value: 0.50; Range: 0.55-1.02; Abnormal: Below low normal; Units: MG/DL; Status: F Test: GLOMERULAR FILTRATION RATE; Value: > 60.0; Range: >58; Status: F Test: SODIUM LEVEL; Value: 136; Range: 136-145; Units: MEQ/L; Status: F Test: POTASSIUM SERUM; Value: 3.9; Range: 3.5-5.1; Units: MEQ/L; Status: F Test: CHLORIDE LEVEL; Value: 103; Range: 98-107; Units: MEQ/L; Status: F Test: CARBON DIOXIDE LEVEL; Value: 23; Range: 21-32; Units: MEQ/L; Status: F Test: ANION GAP; Value: 10; Range: 8-16; Units: MEQ/L; Status: F Test: CALCIUM LEVEL; Value: 8.5; Range: 8.5-10.1; Units: MG/DL; Status: F Test: AST/SGOT; Value: 18; Range: 15-37; Units: U/L; Status: F Test: ALT/SGPT; Value: 15; Range: 12-78; Units: U/L; Status: F Test: ALKALINE PHOSPHATASE; Value: 131; Range: 45-117; Abnormal: Above high normal; Units: U/L; Status: F Test: BILIRUBIN,TOTAL; Value: 0.3; Range: 0.2-1.0; Units: MG/DL; Status: F Test: TOTAL PROTEIN; Value: 6.9; Range: 6.4-8.2; Units: GM/DL; Status: F Test: ALBUMIN; Value: 2.7; Range: 3.2-5.2; Abnormal: Below low normal; Units: GM/DL; Status: F Test: ALBUMIN/GLOBULIN RATIO; Value: 0.64; Range: 1.00-1.93; Abnormal: Below low normal; Status: F Test Note: ; Units are mL/min/1.73 m2 Chronic Kidney Disease Staging per NKF: Stage I & II GFR >=60 Normal to Mildly Decreased Stage III GFR 30-59 Moderately Decreased Stage IV GFR 15-29 Severely Decreased Stage V GFR <15 Very Little GFR Left ESRD GFR <15 on HEALTH INFORMATION MANAGER Lab Order: D-Dimer Quant; SPEC'M 11/15/16 13:00 Test: D-DIMER QUANT; Value: 522.1; Range: <500; Abnormal: Above high normal; Units: ng/ml; Status: F Radiology Order: DVT US Lower Test: DVT US Lower REASON FOR EXAMINATION: Deformity/Swelling; Clinical: Pain and swelling .; ; Technique: Sun scale and color Doppler evaluation using linear high frequency; transducer.; ; Findings:; Ultrasound examination of the right lower extremity deep venous structures from; the common femoral vein to the popliteal vein demonstrates normal compressibility; flow and wave patterns in response to respiration and augmentation. There is no; evidence for deep venous thrombosis. Incidental note is made of right inguinal; lymph node measuring 18 x 25 x 7 mm; ; Impression:; No evidence for deep venous thrombosis.; ; ; Signed by; Henrik Koch MD 11/15/2016 01:35 P; Radiology Order: Chest, 2 View (pa\E\lat) Test: Chest, 2 View (pa\E\lat) REASON FOR EXAMINATION: Shortness of Breath; Clinical: Shortness of breath.; ; Technique: PA and lateral.; ; Comparison: 08/03/2016.; ; Findings:; Trace basilar atelectasis cannot be excluded. Mediastinum and cardiac silhouette; are normal. No consolidation, effusion, or pneumothorax. Skeletal structures; intact.; ; Impression:; Trace basilar atelectasis.; ; ; Signed by; Henrik Koch MD 11/15/2016 01:13 P; Radiology Order: CT Chest Angio R/O PE Test: CT Chest Angio R/O PE REASON FOR EXAMINATION: Shortness of Breath; Clinical: Acute chest pain and shortness of breath.; ; Technique: Axial contrast enhanced images from the thoracic inlet to the upper; abdomen using 100 ml Isovue 370 intravenous contrast material with coronal and; sagittal re-formations.; ; Findings: Satisfactory enhancement of the pulmonary vasculature is achieved and; no filling defects are identified to suggest pulmonary embolus. Thoracic aorta; is normal caliber without aneurysm or dissection. Heart and pericardium are; normal. Bilateral lung carl are well aerated and without acute pulmonary; parenchymal consolidation. Trace left basilar atelectasis appreciated. No; nodule or mass lesion. No pleural effusion/reaction. No pneumothorax. No; adenopathy.; ; Impression:; No evidence for pulmonary embolus.; Trace left basilar atelectasis.; ; ; Signed by; Henrik Koch MD 11/15/2016 04:26 P; Outcome: 17:03 Discharge ordered by Provider. ef1 17:32 Discharge Assessment: Patient awake, alert and oriented x 3. No cognitive and/or hs1 functional deficits noted. Patient verbalized understanding of disposition instructions. patient administered narcotics - no. The following High Risk Discharge criteria are identified: None. Discharged to home ambulatory. Condition: stable. Discharge instructions given to patient, Instructed on discharge instructions, follow up and referral plans. medication usage, Demonstrated understanding of instructions, medications, Pt was receptive of discharge instructions/ teaching. Prescriptions given X 2. CT Study completed. Ultrasound Study completed. Property sent home with patient. 17:34 Patient left the ED. hs1 Signatures: Dispatcher [employer] EDLazara Linares RN RN [facility] Jagdeep Boyd Erica, PA-C PA-C ef1 Rema Mcintosh RN RN hs1 Rolf [id number] Regino Amezquita jml1 Armani Victoria gr2 Corrections: (The following items were deleted from the chart) 11:50 11:46 Transition of care: patient was not received from another setting of care. jennifer [facility] 16:11 11:49 4, Full Term 3, Living 3, LMP 07/12/2016 [facility] MTDD
--- NOTE | 2016-11-15 17:35 | EDDOCDS ---
Physician Documentation [facility] Name: Sasha Calderon Age: 40 yrs Sex: Female : 1975 Arrival Date: 11/15/2016 Time: 11:32 Bed I5 / M5 Private MD: Tomás Watkins Disposition: 11/15/16 17:03 Discharged to Home/Self Care. Impression: Pain in right lower leg - No DVT on Ultrasound today, Acute bronchitis - No PE on CT today, Asthma, Atelectasis. - Condition is Stable. - Discharge Instructions: Atelectasis, Adult, Acute Bronchitis, [id number], Asthma, Adult, Meur-kc-Lnac. - Prescriptions for Amoxicillin 875 mg Oral Tablet - take 1 tablet by ORAL route every 12 hours for 10 days; 20 tablet. Albuterol Sulfate 90 mcg/actuation Inhalation HFA Aerosol Inhaler - inhale 2 puff by INHALATION route every 4 hours As needed; 1 Inhaler. - Medication Reconciliation, Local Pharmacy Hours, Work Release Form - 3 day form. - Follow up: Tomás Watkins; When: 1 - 2 days; Reason: Recheck today's complaints, Continuance of care. Follow up: Emergency Department; Reason: Worsening of conditions. Follow up: Your [employer]pl[employer]; When: 1 - 2 days; Reason: Further diagnostic work-up, Recheck today's complaints, Continuance of care. - Problem is new. - Symptoms have improved. Historical: - Allergies: Codeine Sulfate (Rash); - Home Meds: 1. albuterol sulfate 90 mcg/actuation Inhl HFAA 2 puffs every 4 hours as needed - PMHx: Asthma; - PSHx: none; - Social history: Smoking status: Patient uses tobacco products, light tobacco smoker. No barriers to communication noted, The patient speaks fluent Kinyarwanda. - Family history: No immediate family members are acutely ill. - : The pt / caregiver states he / she is not on anticoagulants. Home medication list is obtained from the patient, [employer] import data. - Exposure Risk Screening:: None identified. 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 10 in. (177.80 cm) (R); Pain 8/10; 16:55 BP 109 / 69; Pulse 64; Resp 18; Temp 97.9(O); Pulse Ox 97% on R/A; Pain 9/10; jml1 11:34 Body Mass Index 27.26 (86.18 kg, 177.80 cm) gr2 MDM: 12:44 IV Saline Lock ordered. ef1 12:46 CBC with Diff Ordered. EDMS 12:46 Complete Comphrensive Metabolic Ordered. EDMS 12:46 D-Dimer Quant Ordered. EDMS 12:46 DVT US Lower Ordered. EDMS 12:46 Chest, 2 View (pa\E\lat) Ordered. EDMS 14:37 CBC with Diff Reviewed. ef1 14:37 Complete Comphrensive Metabolic Reviewed. ef1 14:37 D-Dimer Quant Reviewed. ef1 14:37 DVT US Lower Reviewed. ef1 14:37 Chest, 2 View (pa\E\lat) Reviewed. ef1 14:53 Call Respiratory ordered. ef1 15:01 Albuterol 2.5 mg Nebulizer once ordered. ef1 15:10 Financial registration complete. zo 15:16 Call Respiratory complete. hs1 15:18 CT Chest Angio R/O PE Ordered. EDMS 16:13 [facility] Payment Agreement was scanned into [employer] and attached to record. zo 17:03 Amoxicillin 500 mg PO once ordered. ef1 17:03 Acetaminophen Tablet 650 mg PO once ordered. ef1 Administered Medications: 15:01 CANCELLED (Duplicate Order): Albuterol 5 mg Nebulizer once ef1 15:04 Drug: Albuterol 2.5 mg [albuterol sulfate 2.5 mg/0.5 mL solution for nebulization (0.5 jh6 mL)] Route: Nebulizer; 17:34 Drug: Amoxicillin 500 mg [amoxicillin 500 mg capsule (1 caps)] Route: PO; hs1 17:34 Drug: Acetaminophen 650 mg [acetaminophen 325 mg tablet (2 tabs)] Route: PO; hs1 Signatures: Dispatcher [employer] EDMS Sleeman, LazaraABIMAEL moran RN, Zoeann zo Feola, Erica, PA-C PA-C ef1 Rema Mcintosh RN RN 1 Rolf Sanchez 6 The chart was reviewed and I authenticate all verbal orders and agree with the evaluation and treatment provided.Corrections: (The following items were deleted from the chart) 15:01 14:53 Albuterol 5 mg Nebulizer once ordered. ef1 ef1 Attachments: 16:13 [facility] Payment Agreement zo MTDD
--- NOTE | 2016-11-17 18:35 | EDDOCDS ---
Physician Documentation [facility] Name: Sasha Calderon Age: 40 yrs Sex: Female : 1975 Arrival Date: 11/15/2016 Time: 11:32 Bed I5 / M5 Private MD: Tomás Watkins Disposition: 11/15/16 17:03 Discharged to Home/Self Care. Impression: Pain in right lower leg - No DVT on Ultrasound today, Acute bronchitis - No PE on CT today, Asthma, Atelectasis. - Condition is Stable. - Discharge Instructions: Atelectasis, Adult, Acute Bronchitis, [id number], Asthma, Adult, Fyqr-ow-Pott. - Prescriptions for Amoxicillin 875 mg Oral Tablet - take 1 tablet by ORAL route every 12 hours for 10 days; 20 tablet. Albuterol Sulfate 90 mcg/actuation Inhalation HFA Aerosol Inhaler - inhale 2 puff by INHALATION route every 4 hours As needed; 1 Inhaler. - Medication Reconciliation, Local Pharmacy Hours, Work Release Form - 3 day form. - Follow up: Tomás Watkins; When: 1 - 2 days; Reason: Recheck today's complaints, Continuance of care. Follow up: Emergency Department; Reason: Worsening of conditions. 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 - Problem is new. - Symptoms have improved. Historical: - Allergies: Codeine Sulfate (Rash); - Home Meds: 1. albuterol sulfate 90 mcg/actuation Inhl HFAA 2 puffs every 4 hours as needed - PMHx: Asthma; - PSHx: none; - Social history: Smoking status: Patient uses tobacco products, light tobacco smoker. No barriers to communication noted, The patient speaks fluent Arabic. - Family history: No immediate family members are acutely ill. - : The pt / caregiver states he / she is not on anticoagulants. Home medication list is obtained from the patient, [employer] import data. - Exposure Risk Screening:: None identified. 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 10 in. (177.80 cm) (R); Pain 8/10; 16:55 BP 109 / 69; Pulse 64; Resp 18; Temp 97.9(O); Pulse Ox 97% on R/A; Pain 9/10; jml1 11:34 Body Mass Index 27.26 (86.18 kg, 177.80 cm) gr2 MDM: 12:44 IV Saline Lock ordered. ef1 12:46 CBC with Diff Ordered. EDMS 12:46 Complete Comphrensive Metabolic Ordered. EDMS 12:46 D-Dimer Quant Ordered. EDMS 12:46 DVT US Lower Ordered. EDMS 12:46 Chest, 2 View (pa\E\lat) Ordered. EDMS 14:37 CBC with Diff Reviewed. ef1 14:37 Complete Comphrensive Metabolic Reviewed. ef1 14:37 D-Dimer Quant Reviewed. ef1 14:37 DVT US Lower Reviewed. ef1 14:37 Chest, 2 View (pa\E\lat) Reviewed. ef1 14:53 Call Respiratory ordered. ef1 15:01 Albuterol 2.5 mg Nebulizer once ordered. ef1 15:10 Financial registration complete. zo 15:16 Call Respiratory complete. hs1 15:18 CT Chest Angio R/O PE Ordered. EDMS 16:13 [facility] [place] was scanned into [employer] and attached to record. zo 17:03 Amoxicillin 500 mg PO once ordered. ef1 17:03 Acetaminophen Tablet 650 mg PO once ordered. ef1 11/16 11:52 T-Sheet-- Draft Copy was scanned into [employer] and attached to record. gb 11:53 Radiology Report was scanned into [employer] and attached to record. gb Administered Medications: 11/15 15:01 CANCELLED (Duplicate Order): Albuterol 5 mg Nebulizer once ef1 15:04 Drug: Albuterol 2.5 mg [albuterol sulfate 2.5 mg/0.5 mL solution for nebulization (0.5 jh6 mL)] Route: Nebulizer; 17:34 Drug: Amoxicillin 500 mg [amoxicillin 500 mg capsule (1 caps)] Route: PO; hs1 17:34 Drug: Acetaminophen 650 mg [acetaminophen 325 mg tablet (2 tabs)] Route: PO; hs1 Signatures: Dispatcher [employer] Lazara Witt RN RN Desi Palacios, Dereje Reg Jagdeep Contreras Erica, PA-C PAGurpreet ef1 Rema Mcintosh RN RN hs1 Rolf Sanchez 6 The chart was reviewed and I authenticate all verbal orders and agree with the evaluation and treatment provided.Corrections: (The following items were deleted from the chart) 15:01 14:53 Albuterol 5 mg Nebulizer once ordered. ef1 ef1 Attachments: 16:13 [facility] [place] Agreement zo 11/16 11:52 T-Sheet-- Draft Copy gb Chart Complete MTDD
--- NOTE | 2016-11-17 18:35 | EDDOCDS ---
Physician Documentation [facility] Name: Sasha Calderon Age: 40 yrs Sex: Female : 1975 Arrival Date: 11/15/2016 Time: 11:32 Bed I5 / M5 Private MD: Tomás Watkins Disposition: 11/15/16 17:03 Discharged to Home/Self Care. Impression: Pain in right lower leg - No DVT on Ultrasound today, Acute bronchitis - No PE on CT today, Asthma, Atelectasis. - Condition is Stable. - Discharge Instructions: Atelectasis, Adult, Acute Bronchitis, [id number], Asthma, Adult, [id number]. - Prescriptions for Amoxicillin 875 mg Oral Tablet - take 1 tablet by ORAL route every 12 hours for 10 days; 20 tablet. Albuterol Sulfate 90 mcg/actuation Inhalation HFA Aerosol Inhaler - inhale 2 puff by INHALATION route every 4 hours As needed; 1 Inhaler. - Medication Reconciliation, Local Pharmacy Hours, Work Release Form - 3 day form. - Follow up: Tomás Watkins; When: 1 - 2 days; Reason: Recheck today's complaints, Continuance of care. Follow up: Emergency Department; Reason: Worsening of conditions. Follow up: [employer]; When: 1 - 2 days; Reason: Further diagnostic work-up, Recheck today's complaints, Continuance of care. - Problem is new. - Symptoms have improved. Historical: - Allergies: Codeine Sulfate (Rash); - Home Meds: 1. albuterol sulfate 90 mcg/actuation Inhl HFAA 2 puffs every 4 hours as needed - PMHx: Asthma; - PSHx: none; - Social history: Smoking status: Patient uses tobacco products, light tobacco smoker. No barriers to communication noted, The patient speaks fluent Kinyarwanda. - Family history: No immediate family members are acutely ill. - : The pt / caregiver states he / she is not on anticoagulants. Home medication list is obtained from the patient, INBEP import data. - Exposure Risk Screening:: None identified. 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 10 in. (177.80 cm) (R); Pain 8/10; 16:55 BP 109 / 69; Pulse 64; Resp 18; Temp 97.9(O); Pulse Ox 97% on R/A; Pain 9/10; jml1 11:34 Body Mass Index 27.26 (86.18 kg, 177.80 cm) gr2 MDM: 12:44 IV Saline Lock ordered. ef1 12:46 CBC with Diff Ordered. EDMS 12:46 Complete Comphrensive Metabolic Ordered. EDMS 12:46 D-Dimer Quant Ordered. EDMS 12:46 DVT US Lower Ordered. EDMS 12:46 Chest, 2 View (pa\E\lat) Ordered. EDMS 14:37 CBC with Diff Reviewed. ef1 14:37 Complete Comphrensive Metabolic Reviewed. ef1 14:37 D-Dimer Quant Reviewed. ef1 14:37 DVT US Lower Reviewed. ef1 14:37 Chest, 2 View (pa\E\lat) Reviewed. ef1 14:53 Call Respiratory ordered. ef1 15:01 Albuterol 2.5 mg Nebulizer once ordered. ef1 15:10 Financial registration complete. zo 15:16 Call Respiratory complete. hs1 15:18 CT Chest Angio R/O PE Ordered. EDMS 16:13 [facility] [place] was scanned into [employer] and attached to record. zo 17:03 Amoxicillin 500 mg PO once ordered. ef1 17:03 Acetaminophen Tablet 650 mg PO once ordered. ef1 11/16 11:52 T-Sheet-- Draft Copy was scanned into [employer]ation and attached to record. gb 11:53 Radiology Report was scanned into [employer] and attached to record. gb Administered Medications: 11/15 15:01 CANCELLED (Duplicate Order): Albuterol 5 mg Nebulizer once ef1 15:04 Drug: Albuterol 2.5 mg [albuterol sulfate 2.5 mg/0.5 mL solution for nebulization (0.5 jh6 mL)] Route: Nebulizer; 17:34 Drug: Amoxicillin 500 mg [amoxicillin 500 mg capsule (1 caps)] Route: PO; hs1 17:34 Drug: Acetaminophen 650 mg [acetaminophen 325 mg tablet (2 tabs)] Route: PO; hs1 Signatures: Dispatcher [employer] Lazara Witt RN RN Desi Palacios, Dereje Reg Jagdeep Contreras Erica, PA-C PAGurpreet ef1 Rema Mcintosh RN RN hs1 Rolf Sanchez 6 The chart was reviewed and I authenticate all verbal orders and agree with the evaluation and treatment provided.Corrections: (The following items were deleted from the chart) 15:01 14:53 Albuterol 5 mg Nebulizer once ordered. ef1 ef1 Attachments: 16:13 [facility] [place] Agreement zo 11/16 11:52 T-Sheet-- Draft Copy gb Chart Complete MTDD
--- NOTE | 2016-11-17 18:35 | EDDOCDS ---
Nurse's Notes [facility] Name: Sasha Calderon Age: 40 yrs Sex: Female : 1975 Arrival Date: 11/15/2016 Time: 11:32 Bed I5 / M5 Private MD: Tomás Watkins Diagnosis: Pain in right lower leg-No DVT on Ultrasound today;Acute bronchitis-No PE on CT today;Asthma;Atelectasis Presentation: 11/15 11:46 Presenting complaint: Patient states: she was f/uing up with her PCP and was having kcs pain in her right foot and leg - so they are concerned that she may have a blood clot - also her breathing is not getting any better from her last visit here and has been using her rescue inhaler more than she should. Pain in right leg is constant and she has difficulty putting her foot down. Adult Sepsis Screening: The patient does not have new or worsening altered mentation. Patient's respiratory rate is less than 22. Systolic blood pressure is greater than 100. Patient has a qSOFA score of 0- Negative Sepsis Screen. Suicide/Homicide risk assessment- the patient denies having any suicidal and/or homicidal ideations and does not present with any other emotional, behavioral or mental health complaints. Status: Patient is not a in service educator or dependent. Transition of care: patient was received from a primary care office; [facility]. 11:46 Acuity: MARTHA Level 3 kcs 11:46 Method Of Arrival: Walkin/Carried/Asstd kcs Triage Assessment: 11:49 General: Appears comfortable, well developed, well nourished, well groomed, Behavior is kcs cooperative, pleasant. Pain: Location: right lower leg Pain currently is 8 out of 10 on a pain scale. HIV screening NA for this visit Offered previously. Neurological: Level of Consciousness is awake, alert. Respiratory: Airway is patent Respiratory effort is even, unlabored, Respiratory pattern is regular, symmetrical. Derm: Skin is intact, is healthy with good turgor, Skin is dry, Skin is normal. 17:32 Respiratory: Onset: The symptoms/episode began/occurred at an unknown time. 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 albuterol sulfate 90 mcg/actuation Inhl HFAA 2 puffs every 4 hours as needed - PMHx: Asthma; - PSHx: none; - Social history: Smoking status: Patient uses tobacco products, light tobacco smoker. No barriers to communication noted, The patient speaks fluent Urdu. - Family history: No immediate family members are acutely ill. - : The pt / caregiver states he / she is not on anticoagulants. Home medication list is obtained from the patient, Linio import data. - Exposure Risk Screening:: None identified. Screenin:04 Screening information is obtained from the patient. Fall risk: No risks identified. hs1 Assistance ADL's: requires no assistance with activities of daily living. Abuse/DV Screen: The patient / caregiver reports he/she is: not in a situation that causes fear, pain or injury. Nutritional screening: No deficits noted. Advance Directives: There is no active DNR order. home support is adequate. Assessment: 13:03 General: Appears in no apparent distress, Behavior is appropriate for age, cooperative. hs1 Pain:. Cardiovascular: Capillary refill < 3 seconds Rhythm is regular. Cardiovascular: Chest pain is denied. Respiratory: Airway is patent Respiratory effort is even, unlabored, Respiratory pattern is regular, symmetrical, Breath sounds are clear bilaterally. Reports cough that is productive. Derm: Skin is pink, warm & dry. normal. 14:27 General: Appears in no apparent distress, Behavior is appropriate for age, cooperative. hs1 Pain: Location: medial aspect of right foot Pain radiates to right calf and right cole Quality of pain is described as burning. Respiratory: Airway is patent Respiratory effort is even, unlabored, Respiratory pattern is regular, symmetrical. 15:45 Reassessment: Patient appears in no apparent distress at this time. patient aware of hs1 needing CT. Pain 7/10 in foot when standing. . 16:25 Pain: Location: right foot and right leg Pain currently is 8 out of 10 on a pain scale. hs1 Cardiovascular: No deficits noted. Respiratory: No deficits noted. Derm: Skin is pink, warm & dry. normal. 17:30 General: Appears in no apparent distress, comfortable, Behavior is appropriate for age, hs1 cooperative. Pain: Location: right cole and right leg Pain currently is 8 out of 10 on a pain scale. Quality of pain is described as burning. Respiratory: No deficits noted. Vital Signs: 11:34 BP 107 / 67; Pulse 84; Resp 18 S; Temp 97.3(O); Pulse Ox 98% on R/A; Weight 86.18 kg gr2 (R); Height 5 ft. 10 in. (177.80 cm) (R); Pain 8/10; 16:55 BP 109 / 69; Pulse 64; Resp 18; Temp 97.9(O); Pulse Ox 97% on R/A; Pain 9/10; jml1 11:34 Body Mass Index 27.26 (86.18 kg, 177.80 cm) gr2 Vitals: 11:34 Log In Time: November 15, 2016 at 11:34. gr2 ED Course: 11:33 Patient visited by Armani Victoria. gr2 11:33 Patient moved to Waiting gr2 11:34 [facility] is Private Physician. gr2 11:34 Tomás Watkins is Private Physician. gr2 11:36 Patient visited by Armani Victoria. gr2 11:36 Patient moved to Pre RCE gr2 11:48 Triage Initiated kcs 12:45 Luana Harrell PA-C is PHCP. ef1 12:45 Genesis Devine MD is Attending Physician. ef1 12:46 Rema Mcintosh, ABIMAEL is Primary Nurse. ef1 12:46 Patient visited by Luana Harrell PA-C. ef1 12:46 Patient moved to I5 / ef1 12:50 Inserted saline lock: 20 gauge in left antecubital area and blood collected. The hs1 patient tolerated the procedure well. 13:01 D-Dimer Quant Sent. hs1 13:01 Complete Comphrensive Metabolic Sent. hs1 13:01 CBC with Diff Sent. hs1 13:03 Patient moved to Ultrasound hs1 13:59 Chest, 2 View (pa\E\lat) Returned. EDMS 13:59 DVT US Lower Returned. EDMS 14:22 Patient moved to I5 / hs1 14:23 Patient visited by Rema Mcintosh, ABIMAEL. hs1 14:27 The patient / caregiver is instructed regarding the plan of care and ED course. hs1 14:56 Patient visited by Luana Harrell PA-C. ef1 15:20 Patient visited by Luana Harrell PA-C. ef1 16:10 Patient visited by Rema Mcintosh RN. hs1 16:13 [facility] Payment Agreement was scanned into [employer] and attached to record. zo 16:45 Patient visited by Luana Harrell PA-C. ef1 16:55 Patient visited by Regino Amezqutia. jml1 17:03 Tomás Watkins is Referral Physician. ef1 17:07 [employer] Rasper is Referral Physician. ef1 17:24 CT Chest Angio R/O PE Returned. EDMS 17:31 Discontinued IV lock intact, bleeding controlled, pressure dressing applied, No hs1 redness/swelling at site. No procedures done that require assistance. 11/16 11:52 T-Sheet-- Draft Copy was scanned into [employer] and attached to record. gb 11:53 Radiology Report was scanned into [employer] and attached to record. gb Administered Medications: 11/15 15:01 CANCELLED (Duplicate Order): Albuterol 5 mg Nebulizer once ef1 15:04 Drug: Albuterol 2.5 mg [albuterol sulfate 2.5 mg/0.5 mL solution for nebulization (0.5 jh6 mL)] Route: Nebulizer; 17:34 Drug: Amoxicillin 500 mg [amoxicillin 500 mg capsule (1 caps)] Route: PO; hs1 17:34 Drug: Acetaminophen 650 mg [acetaminophen 325 mg tablet (2 tabs)] Route: PO; hs1 RT: 15:04 Respiratory: Airway is patent Respiratory effort is even, unlabored, Respiratory jh6 pattern is regular symmetrical, Breath sounds are clear in left posterior upper lobe, right posterior upper lobe, left posterior lower lobe, right posterior middle lobe and right posterior lower lobe. 15:18 Respiratory: Airway is patent Respiratory effort is even, unlabored, Respiratory jh6 pattern is regular symmetrical, Breath sounds are clear in left posterior upper lobe, right posterior upper lobe, left posterior lower lobe, right posterior middle lobe and right posterior lower lobe. Order Results: Lab Order: CBC with Diff; SPEC'M 11/15/16 13:00 Test: WHITE BLOOD COUNT; Value: 9.5; Range: 4.0-10.0; Units: K/mm3; Status: F Test: RED BLOOD COUNT; Value: 4.07; Range: 4.00-5.40; Units: M/mm3; Status: F Test: HEMOGLOBIN; Value: 12.3; Range: 12.0-16.0; Units: g/dl; Status: F Test: HEMATOCRIT; Value: 36.1; Range: 36.0-47.0; Units: %; Status: F Test: MEAN CORPUSCULAR VOLUME; Value: 88.8; Range: 80.0-96.0; Units: fl; Status: F Test: MEAN CORPUSCULAR HEMOGLOBIN; Value: 30.1; Range: 27.0-33.0; Units: pg; Status: F Test: MEAN CORPUSCULAR HGB CONC; Value: 33.9; Range: 32.0-36.5; Units: g/dl; Status: F Test: RED CELL DISTRIBUTION WIDTH; Value: 14.6; Range: 11.5-14.5; Abnormal: Above high normal; Units: %; Status: F Test: PLATELET COUNT, AUTOMATED; Value: 362; Range: 150-450; Units: k/mm3; Status: F Test: NEUTROPHILS %; Value: 76.5; Range: 36.0-66.0; Abnormal: Above high normal; Units: %; Status: F Test: LYMPH %; Value: 12.0; Range: 24.0-44.0; Abnormal: Below low normal; Units: %; Status: F Test: MONO %; Value: 8.2; Range: 0.0-5.0; Abnormal: Above high normal; Units: %; Status: F Test: EOS %; Value: 1.6; Range: 0.0-3.0; Units: %; Status: F Test: BASO %; Value: 0.3; Range: 0.0-1.0; Units: %; Status: F Test: LARGE UNSTAINED CELL %; Value: 1.5; Range: 0.0-4.0; Units: %; Status: F Test: NEUTROPHILS #; Value: 7.3; Range: 1.8-7.7; Units: K/mm3; Status: F Test: LYMPH #; Value: 1.3; Range: 1.5-4.5; Abnormal: Below low normal; Units: K/mm3; Status: F Test: MONO #; Value: 0.8; Range: 0.0-0.8; Units: K/mm3; Status: F Test: EOS #; Value: 0.2; Range: 0.0-0.50; Units: K/mm3; Status: F Test: BASO #; Value: 0.0; Range: 0.0-0.2; Units: K/mm3; Status: F Test: LARGE UNSTAINED CELL #; Value: 0.1; Range: 0.0-0.4; Units: K/mm3; Status: F Lab Order: Complete Comphrensive Metabolic; SPEC'M 11/15/16 13:00 Test: GLUCOSE, FASTING; Value: 78; Range: 70-105; Units: MG/DL; Status: F Test: BLOOD UREA NITROGEN; Value: 5; Range: 7-18; Abnormal: Below low normal; Units: MG/DL; Status: F Test: CREATININE FOR GFR; Value: 0.50; Range: 0.55-1.02; Abnormal: Below low normal; Units: MG/DL; Status: F Test: GLOMERULAR FILTRATION RATE; Value: > 60.0; Range: >58; Status: F Test: SODIUM LEVEL; Value: 136; Range: 136-145; Units: MEQ/L; Status: F Test: POTASSIUM SERUM; Value: 3.9; Range: 3.5-5.1; Units: MEQ/L; Status: F Test: CHLORIDE LEVEL; Value: 103; Range: 98-107; Units: MEQ/L; Status: F Test: CARBON DIOXIDE LEVEL; Value: 23; Range: 21-32; Units: MEQ/L; Status: F Test: ANION GAP; Value: 10; Range: 8-16; Units: MEQ/L; Status: F Test: CALCIUM LEVEL; Value: 8.5; Range: 8.5-10.1; Units: MG/DL; Status: F Test: AST/SGOT; Value: 18; Range: 15-37; Units: U/L; Status: F Test: ALT/SGPT; Value: 15; Range: 12-78; Units: U/L; Status: F Test: ALKALINE PHOSPHATASE; Value: 131; Range: 45-117; Abnormal: Above high normal; Units: U/L; Status: F Test: BILIRUBIN,TOTAL; Value: 0.3; Range: 0.2-1.0; Units: MG/DL; Status: F Test: TOTAL PROTEIN; Value: 6.9; Range: 6.4-8.2; Units: GM/DL; Status: F Test: ALBUMIN; Value: 2.7; Range: 3.2-5.2; Abnormal: Below low normal; Units: GM/DL; Status: F Test: ALBUMIN/GLOBULIN RATIO; Value: 0.64; Range: 1.00-1.93; Abnormal: Below low normal; Status: F Test Note: ; Units are mL/min/1.73 m2 Chronic Kidney Disease Staging per NKF: Stage I & II GFR >=60 Normal to Mildly Decreased Stage III GFR 30-59 Moderately Decreased Stage IV GFR 15-29 Severely Decreased Stage V GFR <15 Very Little GFR Left ESRD GFR <15 on TRAINING INSTRUCTOR Lab Order: D-Dimer Quant; SPEC'M 11/15/16 13:00 Test: D-DIMER QUANT; Value: 522.1; Range: <500; Abnormal: Above high normal; Units: ng/ml; Status: F Radiology Order: DVT US Lower Test: DVT US Lower REASON FOR EXAMINATION: Deformity/Swelling; Clinical: Pain and swelling .; ; Technique: Sun scale and color Doppler evaluation using linear high frequency; transducer.; ; Findings:; Ultrasound examination of the right lower extremity deep venous structures from; the common femoral vein to the popliteal vein demonstrates normal compressibility; flow and wave patterns in response to respiration and augmentation. There is no; evidence for deep venous thrombosis. Incidental note is made of right inguinal; lymph node measuring 18 x 25 x 7 mm; ; Impression:; No evidence for deep venous thrombosis.; ; ; Signed by; Henrik Koch MD 11/15/2016 01:35 P; Radiology Order: Chest, 2 View (pa\E\lat) Test: Chest, 2 View (pa\E\lat) REASON FOR EXAMINATION: Shortness of Breath; Clinical: Shortness of breath.; ; Technique: PA and lateral.; ; Comparison: 08/03/2016.; ; Findings:; Trace basilar atelectasis cannot be excluded. Mediastinum and cardiac silhouette; are normal. No consolidation, effusion, or pneumothorax. Skeletal structures; intact.; ; Impression:; Trace basilar atelectasis.; ; ; Signed by; Henrik Koch MD 11/15/2016 01:13 P; Radiology Order: CT Chest Angio R/O PE Test: CT Chest Angio R/O PE REASON FOR EXAMINATION: Shortness of Breath; Clinical: Acute chest pain and shortness of breath.; ; Technique: Axial contrast enhanced images from the thoracic inlet to the upper; abdomen using 100 ml Isovue 370 intravenous contrast material with coronal and; sagittal re-formations.; ; Findings: Satisfactory enhancement of the pulmonary vasculature is achieved and; no filling defects are identified to suggest pulmonary embolus. Thoracic aorta; is normal caliber without aneurysm or dissection. Heart and pericardium are; normal. Bilateral lung carl are well aerated and without acute pulmonary; parenchymal consolidation. Trace left basilar atelectasis appreciated. No; nodule or mass lesion. No pleural effusion/reaction. No pneumothorax. No; adenopathy.; ; Impression:; No evidence for pulmonary embolus.; Trace left basilar atelectasis.; ; ; Signed by; Henrik Koch MD 11/15/2016 04:26 P; Outcome: 17:03 Discharge ordered by Provider. ef1 17:32 Discharge Assessment: Patient awake, alert and oriented x 3. No cognitive and/or hs1 functional deficits noted. Patient verbalized understanding of disposition instructions. patient administered narcotics - no. The following High Risk Discharge criteria are identified: None. Discharged to home ambulatory. Condition: stable. Discharge instructions given to patient, Instructed on discharge instructions, follow up and referral plans. medication usage, Demonstrated understanding of instructions, medications, Pt was receptive of discharge instructions/ teaching. Prescriptions given X 2. CT Study completed. Ultrasound Study completed. Property sent home with patient. 17:34 Patient left the ED. hs1 Signatures: Dispatcher Med[employer] EDMS Lazara Ugalde, RN RN kcs Desi Daly, Jagdeep Nath Erica, PA-C PAParrishC ef1 Rema Mcintosh RN RN hs1 Rolf Sanchez jh6 Regino Amezquita jml1 Armani Victoria gr2 Corrections: (The following items were deleted from the chart) 11:50 11:46 Transition of care: patient was not received from another setting of care. jennifer rodriguez 16:11 11:49 4, Full Term 3, Living 3, LMP 07/12/2016 kcs hs1 Chart Complete MTDD
== END 2016-11-15 17:34 | disposition home or self-care (01) ==
LOC: M ED 11:32
DX: M79.661 Pain in right lower leg (principal); J20.9 Acute bronchitis, unspecified; J45.909 Unspecified asthma, uncomplicated; J98.11 Atelectasis; Z88.2 Allergy status to sulfonamides; Z88.5 Allergy status to narcotic agent; F17.210 Nicotine dependence, cigarettes, uncomplicated
CPT/HCPCS: 36415; 71020; 71275; 80053; 85025; 85379; 93971; 99284; Q9967

== ENCOUNTER → 2016-12-06 | Outpatient (CLI) | payer OTHER ==
[2016-12-06 15:25] LABS: BASO % 0.4 % (0.0-1.0); EOS # 0.3 K/mm3 (0.0-0.50); EOS % 3.8 % (0.0-3.0); LARGE UNSTAINED CELL # 0.2 K/mm3 (0.0-0.4); LARGE UNSTAINED CELL % 2.3 % (0.0-4.0); LYMPH # 1.5 K/mm3 (1.5-4.5); LYMPH % 14.7 % (24.0-44.0); MEAN CORPUSCULAR HEMOGLOBIN 30.2 pg (27.0-33.0); MEAN CORPUSCULAR HGB CONC 33.2 g/dl (32.0-36.5); MEAN CORPUSCULAR VOLUME 90.9 fl (80.0-96.0); MONO # 0.4 K/mm3 (0.0-0.8); MONO % 4.6 % (0.0-5.0); NEUTROPHILS # 6.5 K/mm3 (1.8-7.7); NEUTROPHILS % 74.2 % (36.0-66.0); PLATELET COUNT, AUTOMATED 320 k/mm3 (150-450); WHITE BLOOD COUNT 8.8 K/mm3 (4.0-10.0)
[2016-12-07 09:36] LABS: HBsAg Prenatal NEGATIVE (NEGATIVE)
[2016-12-07 14:14] LABS: HIV SCRN NEGATIVE (NEGATIVE); HIV SCRN1 NEGATIVE (NEGATIVE)
[2016-12-07 14:15] LABS: CONTROL LINE INT CTR LINE PRESENT
== END ==
LOC: M SMT 13:49
PROVIDERS: ATTEND Obstetrics & Gynecology
DX: Z34.81 Encounter for supervision of other normal pregnancy, first trimester (principal)

== ENCOUNTER → 2016-12-26 | Outpatient (CLI) | payer OTHER ==
--- NOTE | 2016-12-26 13:53 | REP ---
Obstetric ultrasound for size. The discrepancy and anatomy: There is a single intrauterine gestation in a vertex presentation. There is movement and cardiac activity, the heart rate is 139 beats per minute. The placenta is anterior. There is no placenta previa or abruptio. The placenta is grade zero maturity. The amniotic fluid volume subjectively is normal. The cervix is 3.8 cm length. By today's ultrasound the gestational age is 22 weeks 1 day with an KIARRA of 04/30/2017. The LMP is unknown. weight is 504 grams (1 pound, 1 ounce). This is the 57th percentile for 22 weeks 1 day. The following anatomic structures are identified and are unremarkable: Cranium, choroid plexus, cavum, cerebellum, cisterna magna, face, facial profile, upper lip, four-chamber heart, lungs, cardiac right and left ventricular outflow tracts, diaphragm, stomach, cord insertion, three-vessel cord, kidneys, bladder, spine and upper lower extremities. No anomalies are identified. Signed by Houston Zhong MD 12/26/2016 09:33 A
== END ==
LOC: M SMT 08:12
PROVIDERS: ATTEND Advanced Practice Midwife
DX: O26.842 Uterine size-date discrepancy, second trimester (principal)

== ENCOUNTER → 2017-02-09 | Outpatient (CLI) | payer OTHER ==
[2017-02-09 12:25] LABS: BASO % 0.2 % (0.0-1.0); EOS # 0.1 K/mm3 (0.0-0.50); EOS % 1.2 % (0.0-3.0); LARGE UNSTAINED CELL # 0.2 K/mm3 (0.0-0.4); LARGE UNSTAINED CELL % 2.1 % (0.0-4.0); LYMPH # 1.5 K/mm3 (1.5-4.5); LYMPH % 15.3 % (24.0-44.0); MEAN CORPUSCULAR HEMOGLOBIN 29.2 pg (27.0-33.0); MEAN CORPUSCULAR HGB CONC 33.9 g/dl (32.0-36.5); MONO # 0.4 K/mm3 (0.0-0.8); MONO % 4.6 % (0.0-5.0); NEUTROPHILS # 6.5 K/mm3 (1.8-7.7); NEUTROPHILS % 76.6 % (36.0-66.0); PLATELET COUNT, AUTOMATED 353 k/mm3 (150-450); RED CELL DISTRIBUTION WIDTH 13.7 % (11.5-14.5); WHITE BLOOD COUNT 8.4 K/mm3 (4.0-10.0)
== END ==
LOC: M LAB 10:38
PROVIDERS: ATTEND Advanced Practice Midwife
DX: O09.513 Supervision of elderly primigravida, third trimester (principal)

== ENCOUNTER 2017-04-26 16:51 | Inpatient (IN) | payer OTHER ==
[~2017-04-26] VITALS: Ht 177.8 cm; Wt 92.0 kg
[2017-04-26] MEDS ORDERED: ALBU17IN INH (20:45)
[2017-04-26] MEDS ORDERED: BUTORPHANOL 2 MG/ML INJ (J0595) IV ONE (21:00)
[2017-04-26] MEDS ORDERED: miSOPROStol 50 MCG 1/2 TAB (S0191) PO SCH (21:00)
[2017-04-26] MEDS ORDERED: PROMETHAZINE INJ 25 MG/ML VIAL (J2550) IV ONE (21:00)
[2017-04-26] MEDS ORDERED: hydrOXYzine 50 MG TAB PO SCH (21:00)
[2017-04-26] MEDS ORDERED: LACTATED RINGER'S 1000 ML IV STA (21:00)
[2017-04-26] MEDS ORDERED: RHOGAM 300 MCG (1500 IU) INJ (J2790) IM SCH (21:00)
[2017-04-26 21:59] LABS: MEAN CORPUSCULAR HGB CONC 34.2 g/dl (32.0-36.5); MEAN CORPUSCULAR VOLUME 82.1 fl (80.0-96.0); WHITE BLOOD COUNT 10.2 K/mm3 (4.0-10.0)
[2017-04-26 22:08] LABS: INR 0.9
[2017-04-26 22:26] LABS: ALT/SGPT 14 U/L (12-78); AST/SGOT 15 U/L (15-37); BILIRUBIN,TOTAL 0.3 MG/DL (0.2-1.0); CREATININE FOR GFR 0.53 MG/DL (0.55-1.02); GLOMERULAR FILTRATION RATE > 60.0 (>58)
[2017-04-26 22:31] LABS: THYROXINE (T4) 12.8 UG/DL (4.5-12.0)
[2017-04-27] VITALS (15 sets, daily range): BP systolic 133–180; BP diastolic 65–96
[2017-04-27] MEDS ORDERED: miSOPROStol 100 MCG TAB (S0191) PO ONE (02:00)
[2017-04-27] MEDS ORDERED: PROMETHAZINE INJ 25 MG/ML VIAL (J2550) IV ONE (02:00)
[2017-04-27] MEDS ORDERED: BUTORPHANOL 2 MG/ML INJ (J0595) IV ONE (02:00)
[2017-04-27] MEDS ORDERED: MORPHINE 10 MG/ML 1ML VIAL As Ordered ONE (05:09)
[2017-04-27] MEDS ORDERED: MORPHINE 10 MG/ML 1ML VIAL IV ONE (05:15)
[2017-04-27] MEDS ORDERED: FENTANYL 2MCG/ML ROPIVACAINE 0.2% IN 0.9% NACL 200ML IVBAG As Ordered ONE (05:30)
[2017-04-27] MEDS ORDERED: OXYTOCIN 30 UNITS IN 0.9% NaCl 500ML IV BAG (J2590) As Ordered ONE (07:06)
[2017-04-27] MEDS ORDERED: DIBUCAINE 1% OINTMENT 30GM TOP PRN (08:00)
[2017-04-27] MEDS ORDERED: METHYLERGONOVINE MALEATE 0.2 MG TAB PO PRN (08:00)
[2017-04-27] MEDS ORDERED: MOM 30ML SUSPENSION UDC PO PRN (08:00)
[2017-04-27] MEDS ORDERED: IBUPROFEN 800 MG TAB PO PRN (08:00)
[2017-04-27] MEDS ORDERED: ANUSOL HC CREAM 30GM TOP PRN (08:00)
[2017-04-27] MEDS ORDERED: OXYTOCIN DRIP 30 UNITS in APPROPRIATE DILUENT 1 EA IV SCH (08:00)
[2017-04-27] MEDS ORDERED: miSOPROStol 200 MCG TAB (S0191) PR ONE (08:00)
[2017-04-27] MEDS: hydrOXYzine 50 MG TAB PO PRN ×4 (08:06→22:37)
[2017-04-27] MEDS ORDERED: REFRIGERATOR IV KEYS XX PRN (09:00)
[2017-04-27] MEDS ORDERED: ePHEDrine SULFATE 25 MG/5 ML(5MG/ML) SYRINGE IV PRN (09:00)
[2017-04-27] MEDS ORDERED: MEASLES,MUMPS,RUBELLA VACCINE INJ (MMR-II) (90707) SC SCH (09:00)
[2017-04-27] MEDS ORDERED: diphenhydrAMINE INJ 50MG/ML VIAL (J1200) IV PRN (09:00)
[2017-04-27] MEDS ORDERED: EPIDURAL COMMENT XX SCH (09:00)
[2017-04-27] MEDS ORDERED: ONDANSETRON 4MG/2ML VIAL (J2405) IV PRN (09:00)
[2017-04-27] MEDS ORDERED: FENTANYL/ROPIVACAINE/NACL BAG 200 ML EPIDURAL SCH (09:00)
[2017-04-27] MEDS ORDERED: EPIDURAL/PCA KEYS XX PRN (09:00)
[2017-04-27] MEDS ORDERED: NALOXONE INJ 0.4 MG/1 ML VIAL (J2310) IV PRN (09:00)
[2017-04-27] MEDS: PRENATAL VITAMINS CHEWABLE TABLET PO SCH (09:00)
[2017-04-27] MEDS ORDERED: LACTATED RINGER'S 1000 ML IV PRN (09:00)
--- NOTE | 2017-04-27 15:10 | HPE ---
DATE OF ADMISSION: 04/26/2017 41-year-old 5, para 3-0-1-3, estimated date of delivery 05/17/2017 presents from office at 37 weeks after routine office visit with a diagnosis of intrauterine demise via sonogram. Denies loss of fluid, regular contractions or bleeding. Reports last known activity was early this morning. Sonogram performed by Dr. Au in the office confirmed no cardiac activity and oligohydramnios. Second trimester entry to care. Last normal menstrual period was uncertain. Anatomy scan confirmed her date with no noted anomalies. complicated by advanced maternal age, tobacco abuse and social issues. OBSTETRICAL HISTORY: November 1993, normal spontaneous vaginal , viable male, 41 weeks, 7 pounds 7 ounces. March 1995, normal spontaneous vaginal , viable male, 41 weeks, 7 pounds 2 ounces. January 2009, normal spontaneous vaginal , viable female, 40 weeks, 7 pounds 4 ounces. 2011, early miscarriage. ALLERGIES: CODEINE. MEDICAL SURGICAL HISTORY: Anxiety and asthma. FAMILY HISTORY: Insulin-dependent diabetes, varicosities, breast cancer and autism. SOCIAL HISTORY: Single. Father of the baby not fully involved in the . Family and friends are supportive. Reports smoking one half pack per day. Denies alcohol, drugs or abuse. OBJECTIVE: Prepregnancy weight 160, total weight gain 44 pounds, A negative, antibody negative, received RhoGAM, rubella immune, VDRL, hepatitis B, hepatitis C, HIV, gonorrhea, chlamydia all negative. Declined genetic screening. 1-hour glucose 104 and group B strep is pending. Family are present are supportive. Vital signs: 97.9 and 142/89. Labs are pending. She is coping well at present. Bedside sonogram at patient request confirms cephalic presentation, intrauterine demise. Abdomen is soft, gravid, mildly uncomfortable with palpation. Sterile vaginal examination: 1 cm, 50%, -3 station. ASSESSMENT: Multiparity, term, intrauterine demise. PLAN: Admit per consult Dr. Au. Misoprostol cervical ripening. The patient plans epidural.
[2017-04-27] MEDS: ACETAMINOPHEN 500 MG TAB PO PRN ×2 (17:43→22:38)
[2017-04-27] MEDS ORDERED: DOCUSATE SODIUM 100 MG CAP PO PRN (21:00)
[2017-04-28 06:00] VITALS: BP 136/2
[2017-04-28] MEDS: PRENATAL VITAMINS CHEWABLE TABLET PO SCH (09:00)
[2017-04-28] MEDS ORDERED: SERTRALINE HCL 50 MG TAB PO SCH (09:00)
[2017-04-28] MEDS ORDERED: ACET50TA PO (09:12)
[2017-04-28] MEDS ORDERED: IBUP-1114 PO (09:12)
--- NOTE | 2017-04-28 09:33 | DN ---
DATE: 04/27/2017 Utilized intravenous (IV) medications and epidural for labor coping. Fully dilated at 0650 hours. Artificial rupture of membranes. Thick meconium fluid at introitus at 0653 hours, scant amount. Delivery of intrauterine demise meconium stained female child left occiput anterior (JAY) compound with posterior arm and loop of cord at chest at 0708 hours. Fetus given to mother per her request. Cord clamped and cut by dad. Cord blood was obtained. Placenta, Archibald and intact with trailing membranes. At 0716 hours, fundus firmed with massage and IV Pitocin bolus. Misoprostol 1000 mcg per rectum (NJ) given for persistent bleeding with good results. Estimated blood loss 400 mL. Perineum is intact. Placenta inspected. Appears small with significant calcifications. Fetus inspected. No obvious evidence of anomalies, not macerated. Sponge, sharp and instrument count correct. Family is undecided about autopsy, and placenta sent to pathology.
[2017-04-28] MEDS: hydrOXYzine 50 MG TAB PO PRN (09:36)
[2017-04-30 00:06] LABS: ANTI PARVO VIRUS LEVEL IGG 6.2 index (0.0-0.8); ANTI PARVO VIRUS LEVEL IgM 0.2 index (0.0-0.8)
--- NOTE | 2017-05-14 06:59 | DSES ---
DATE OF ADMISSION: 04/26/2017 DATE OF DISCHARGE: 04/28/2017 A 41-year-old 5, para 4-0-1-3, estimated date of delivery 05/17/2017 admitted from the office at 37 weeks with diagnosis of term demise as confirmed by office sonogram. Denied bleeding or loss of fluid. was complicated by advanced maternal age, tobacco use, social issues and late entry to care. Labor was initiated by misoprostol and Pitocin. She utilized epidural for labor coping. Stillborn female infant was delivered vaginally 04/27/2017 at 0708 hours. Thick meconium was noted at delivery. No obvious anomalies were noted. The patient declined autopsy or genetic screening. Perineum was intact. On the day of discharge, Ms. Calderon felt well. Vital signs are stable, afebrile, showing appropriate grief. She has adequate support at home. Routine discharge instructions. She started Zoloft 50 mg orally. Instructed to call the office with fever, foul lochia, any concerns and return to the office in one week and six weeks.
== END 2017-04-28 10:50 | disposition home or self-care (01) | DRG 560 ==
LOC: M LAB REF 16:51 → M LDI 19:11 → M OBS 04-27 17:00
PROVIDERS: ADMIT Advanced Practice Midwife; ATTEND Advanced Practice Midwife
PROC: 10E0XZZ Delivery of Products of Conception, External Approach (ICD-10-PCS; principal; 2017-04-27)
PROC: 10907ZC Drainage of Amniotic Fluid, Therapeutic from Products of Conception, Via Natural or Artificial Opening (ICD-10-PCS; 2017-04-27)
DX: O41.03X0 Oligohydramnios, third trimester, not applicable or unspecified (principal); Z37.1 Single stillbirth; F17.200 Nicotine dependence, unspecified, uncomplicated; Z3A.37 37 weeks gestation of pregnancy; O09.523 Supervision of elderly multigravida, third trimester; O99.334 Smoking (tobacco) complicating childbirth; O77.0 Labor and delivery complicated by meconium in amniotic fluid; O32.6XX0 Maternal care for compound presentation, not applicable or unspecified; O09.33 Supervision of pregnancy with insufficient antenatal care, third trimester

== ENCOUNTER → 2017-05-04 | Outpatient (CLI) | payer OTHER ==
[~2017-05-04] MED LIST: ACET50TA PO; ALBU17IN INH; IBUP-1114 PO
[2017-05-04 10:41] LABS: BASO % 0.3 % (0.0-1.0); EOS # 0.2 K/mm3 (0.0-0.50); EOS % 1.9 % (0.0-3.0); LARGE UNSTAINED CELL # 0.2 K/mm3 (0.0-0.4); LARGE UNSTAINED CELL % 2.3 % (0.0-4.0); LYMPH # 1.3 K/mm3 (1.5-4.5); LYMPH % 16.3 % (24.0-44.0); MEAN CORPUSCULAR HEMOGLOBIN 27.2 pg (27.0-33.0); MEAN CORPUSCULAR HGB CONC 32.4 g/dl (32.0-36.5); MONO # 0.3 K/mm3 (0.0-0.8); MONO % 4.2 % (0.0-5.0); PLATELET COUNT, AUTOMATED 565 k/mm3 (150-450); RED CELL DISTRIBUTION WIDTH 16.2 % (11.5-14.5)
== END ==
LOC: M LAB 09:50
PROVIDERS: ATTEND Advanced Practice Midwife
DX: R10.30 Lower abdominal pain, unspecified (principal)

== ENCOUNTER → 2017-05-15 | Outpatient (CLI) | payer OTHER ==
[2017-05-15 12:22] LABS: ALBUMIN 3.3 GM/DL (3.2-5.2); ALKALINE PHOSPHATASE 108 U/L (45-117); ALT/SGPT 18 U/L (12-78); AMYLASE 40 U/L (25-115); ANION GAP 8 MEQ/L (8-16); AST/SGOT 11 U/L (15-37); BILIRUBIN,DIRECT 0.1 MG/DL (0.0-0.2); BILIRUBIN,TOTAL 0.4 MG/DL (0.2-1.0); BLOOD UREA NITROGEN 7 MG/DL (7-18); CALCIUM LEVEL 9.4 MG/DL (8.5-10.1); CARBON DIOXIDE LEVEL 27 MEQ/L (21-32); CHLORIDE LEVEL 104 MEQ/L (98-107); CREATININE FOR GFR 0.62 MG/DL (0.55-1.02); GLOMERULAR FILTRATION RATE > 60.0 (>58); GLUCOSE, FASTING 86 MG/DL (70-105); POTASSIUM SERUM 4.9 MEQ/L (3.5-5.1); SODIUM LEVEL 139 MEQ/L (136-145); TOTAL PROTEIN 7.4 GM/DL (6.4-8.2)
== END ==
LOC: M LAB 10:25
PROVIDERS: ATTEND Advanced Practice Midwife
DX: R10.10 Upper abdominal pain, unspecified (principal)

== ENCOUNTER → 2017-05-18 | Outpatient (CLI) | payer OTHER ==
--- NOTE | 2017-05-18 10:59 | REP ---
COMPLETE ABDOMINAL SONOGRAPHY: HISTORY: Status post stillborn . Abdominal pain. Low back pain. FINDINGS: Scanning through the right upper quadrant of the abdomen demonstrates two tiny echogenic structures along the wall without shadowing, consistent with polyps, each 2 mm. Common bile duct is normal measuring 0.4 cm in diameter. No focal liver lesion is seen. Limited views of the pancreas are unremarkable. There is no evidence of ascites. The spleen is normal in size and homogeneous in texture with a greatest dimension of 9.3 cm. A normal caliber aorta is seen. The urinary bladder is largely empty. Renal cortical echogenicity pattern is normal. There is a 3.9 x 3.8 x 4.2 cm simple cyst in the right mid kidney. The right kidney measures 11.5 x 6.3 x 6.3 cm. Left renal dimensions are 10.9 x 6.3 x 5.9 cm. IMPRESSION: 4.2 cm simple cyst right kidney. There appear to be two tiny gallbladder wall polyps. No stone or sludge seen. Otherwise, negative complete abdominal sonogram. Signed by James Garcia MD 05/18/2017 01:59 P
--- NOTE | 2017-05-18 14:11 | REP ---
TRANSVAGINAL AND ENDOVAGINAL PROBE ULTRASOUND: 05/18/2017. Clinical history: Left flank and lower abdominal/pelvic pain since 04/29/2017. Stillbirth 04/27/2017. Comparison: OB ultrasound 12/26/2016. Findings: Transabdominal and endovaginal probe images show the uterus anteverted, it is somewhat enlarged measuring 11.1 x 5.8 x 8.7 cm. The endometrial echogenic stripe has a thickness of 10 mm. There is fluid in the endometrial cavity. Small amount of fluid in the endometrial cavity and endocervical canal. On EV probe is a hyperechoic area in the fundus along the endometrial anteriorly 6.3 x 5.4 x 6.6 mm. This could be an endometrial polyp or residual placental tissue. I do not see other endometrial finding. The right ovary is 2.4 x 2.3 x 1.5 cm with Doppler showing resistive index 0.45, normal. The left ovary is 3.1 x 2.5 x 2.2 cm and also shows normal Doppler with resistive index of 0.53. There is a dominant follicle on the right at 1.5 cm. No free fluid. Impression: 1. Uterus mildly enlarged from recent delivery about 3 weeks ago. 2. Fluid in the endometrial cavity with a 7 x 6 x 5 mm polyp versus residual placental tissue anteriorly towards the left of midline. 3. No pelvic free fluid. The ovaries were unremarkable with normal blood flow on Doppler, no torsion or mass. Signed by Dom Hong MD 05/18/2017 04:44 P
== END ==
LOC: M RAD 09:49
PROVIDERS: ATTEND Advanced Practice Midwife
DX: M54.5 Low back pain (principal); R10.30 Lower abdominal pain, unspecified; R10.10 Upper abdominal pain, unspecified

== ENCOUNTER → 2017-06-15 | Outpatient (CLI) | payer OTHER ==
[2017-06-15 14:56] LABS: THYROXINE (T4) 7.8 UG/DL (4.5-12.0)
[2017-06-15 16:37] LABS: BASO % 0.5 % (0.0-1.0); EOS # 0.2 K/mm3 (0.0-0.50); EOS % 2.6 % (0.0-3.0); LARGE UNSTAINED CELL # 0.2 K/mm3 (0.0-0.4); LARGE UNSTAINED CELL % 2.7 % (0.0-4.0); LYMPH # 1.5 K/mm3 (1.5-4.5); LYMPH % 18.7 % (24.0-44.0); MEAN CORPUSCULAR HEMOGLOBIN 28.5 pg (27.0-33.0); MEAN CORPUSCULAR HGB CONC 32.2 g/dl (32.0-36.5); MEAN CORPUSCULAR VOLUME 88.5 fl (80.0-96.0); MONO # 0.5 K/mm3 (0.0-0.8); NEUTROPHILS # 5.6 K/mm3 (1.8-7.7); NEUTROPHILS % 69.6 % (36.0-66.0); PLATELET COUNT, AUTOMATED 489 k/mm3 (150-450); RED CELL DISTRIBUTION WIDTH 16.3 % (11.5-14.5)
== END ==
LOC: M SMT 09:14
PROVIDERS: ATTEND Advanced Practice Midwife
DX: R53.83 Other fatigue (principal)

== ENCOUNTER → 2017-07-05 | Outpatient (CLI) | payer OTHER ==
[2017-07-05 16:02] LABS: BASO # 0.1 10^3/uL (0.0-0.2); BASO % 0.5 % (0.0-1.0); EOS # 0.3 10^3/uL (0.0-0.50); EOS % 3.4 % (0.0-3.0); IMMATURE GRANULOCYTE % 0.2 % (0-0); LYMPH # 2.3 10^3/uL (1.5-4.5); LYMPH % 24.1 % (24.0-44.0); MEAN CORPUSCULAR HEMOGLOBIN 27.8 pg (27.0-33.0); MEAN CORPUSCULAR HGB CONC 32.1 g/dl (32.0-36.5); MEAN CORPUSCULAR VOLUME 86.8 fl (80.0-96.0); MONO # 0.7 10^3/uL (0.0-0.8); NEUTROPHILS % 64.8 % (36.0-66.0); PLATELET COUNT, AUTOMATED 393 10^3/uL (150-450); RED CELL DISTRIBUTION WIDTH 16.7 % (11.5-14.5); WHITE BLOOD COUNT 9.3 10^3/uL (4.0-10.0)
--- NOTE | 2017-07-05 16:02 | REP ---
Pelvic sonography: History: Very heavy vaginal bleeding. Findings: Transabdominal and transvaginal scanning are performed. Comparison study is from May 18, 2017. Uterine dimensions are mildly enlarged at 10.5 x 6.1 x 7.6 cm. Endometrial echo is 1.8 cm thick. There is a 3 mm cystic area in the endometrium to the left of midline. The previously noted questionable endometrial polyp is not seen today. No free fluid is seen in the cul-de-sac. Normal ovaries are seen. Right ovary measures 2.6 x 1.6 x 2.4 cm left ovary dimensions are 1.8 x 1.3 x 1.4 cm. Resistive indices are 0.5 bilaterally. Impression: Mildly enlarged uterus. Somewhat thickened endometrium at 1.8 cm. No polyp or mass seen. Otherwise negative. Signed by James Garcia MD 07/05/2017 05:03 P
== END ==
LOC: M RAD 14:14
PROVIDERS: ATTEND Advanced Practice Midwife
DX: N92.0 Excessive and frequent menstruation with regular cycle (principal)

== ENCOUNTER → 2017-10-23 | Outpatient (REF) | payer OTHER | LOC: M LAB REF 18:55 | DX: R87.613 High grade squamous intraepithelial lesion on cytologic smear of cervix (HGSIL) (principal) | CPT/HCPCS: 88307 ==

== ENCOUNTER 2018-01-03 08:38 | Outpatient (CLI) | payer OTHER ==
[~2018-01-03 08:38] MED LIST changes: -ACET50TA PO; -ALBU17IN INH; -IBUP-1114 PO; +METHACHOLINE KIT (J7674) INH
[2018-01-03 09:33] LABS: HEMOGLOBIN 10.9 g/dl (12.0-15.5)
[2018-01-10] MEDS ORDERED: METHACHOLINE KIT (J7674) INH (08:00)
[2018-01-10 08:43] LABS: ABG BASE EXCESS -0.1 (-2.0-2.0); ABG HCO3 23.5 MEQ/L (22.0-26.0); ABG PARTIAL PRESSURE CO2 34.9 mmHg (35.0-45.0); ABG PARTIAL PRESSURE O2 87.4 mmHg (75.0-100.0); ABG STANDARD HCO3 24.4 MEQ/L (22.0-26.0); ABG TOTAL CO2 24.6 MEQ/L (22.0-29.0); ABG pH (ARTERIAL) 7.446 UNITS (7.350-7.450)
== END 2018-01-10 ==
LOC: M CARPUL 08:38
DX: R06.00 Dyspnea, unspecified (principal)
CPT/HCPCS: J7674

== ENCOUNTER → 2018-01-18 | Outpatient (REF) | payer OTHER ==
[2018-01-18 12:35] LABS: BASO # 0.1 10^3/uL (0.0-0.2); BASO % 0.9 % (0.0-1.0); EOS # 0.3 10^3/uL (0.0-0.50); EOS % 3.6 % (0.0-3.0); HEMATOCRIT 36.8 % (36.0-47.0); HEMOGLOBIN 11.5 g/dl (12.0-15.5); IMMATURE GRANULOCYTE % 0.3 % (0-3.0); LYMPH # 2.2 10^3/uL (1.5-4.5); LYMPH % 28.9 % (24.0-44.0); MEAN CORPUSCULAR HEMOGLOBIN 24.8 pg (27.0-33.0); MEAN CORPUSCULAR HGB CONC 31.3 g/dl (32.0-36.5); MEAN CORPUSCULAR VOLUME 79.5 fl (80.0-96.0); MONO # 0.8 10^3/uL (0.0-0.8); MONO % 9.7 % (0.0-5.0); NEUTROPHILS # 4.4 10^3/uL (1.8-7.7); NEUTROPHILS % 56.6 % (36.0-66.0); PLATELET COUNT, AUTOMATED 445 10^3/uL (150-450); RED BLOOD COUNT 4.63 10^6/uL (4.00-5.40); RED CELL DISTRIBUTION WIDTH 17.2 % (11.5-14.5); WHITE BLOOD COUNT 7.7 10^3/uL (4.0-10.0)
[2018-01-18 13:26] LABS: ALBUMIN 3.5 GM/DL (3.2-5.2); ALBUMIN/GLOBULIN RATIO 0.92 (1.00-1.93); ALKALINE PHOSPHATASE 82 U/L (45-117); ALT/SGPT 16 U/L (12-78); ANION GAP 8 MEQ/L (8-16); AST/SGOT 11 U/L (7-37); BILIRUBIN,TOTAL 0.3 MG/DL (0.2-1.0); BLOOD UREA NITROGEN 10 MG/DL (7-18); CALCIUM LEVEL 8.8 MG/DL (8.5-10.1); CARBON DIOXIDE LEVEL 24 MEQ/L (21-32); CHLORIDE LEVEL 108 MEQ/L (98-107); CHOLESTEROL LEVEL 234 MG/DL (<200); CHOLESTEROL RISK RATIO 3.774 (<5); CREATININE FOR GFR 0.66 MG/DL (0.55-1.30); GLOMERULAR FILTRATION RATE > 60.0 (>58); GLUCOSE, FASTING 74 MG/DL (70-100); HDL CHOLESTEROL 62 MG/DL (>40); NON-HDL-C 172 MG/DL; POTASSIUM SERUM 4.6 MEQ/L (3.5-5.1); SODIUM LEVEL 140 MEQ/L (136-145); TOTAL PROTEIN 7.3 GM/DL (6.4-8.2); TRIGLYCERIDES LEVEL 95 MG/DL (<150)
== END ==
LOC: M LAB REF 12:10
DX: E03.9 Hypothyroidism, unspecified (principal)

== ENCOUNTER → 2018-05-18 | Outpatient (REF) | payer OTHER ==
[2018-05-18 14:56] LABS: ALBUMIN 3.1 GM/DL (3.2-5.2); ALBUMIN/GLOBULIN RATIO 0.89 (1.00-1.93); ALKALINE PHOSPHATASE 82 U/L (45-117); ALT/SGPT 18 U/L (12-78); ANION GAP 9 MEQ/L (8-16); AST/SGOT 12 U/L (7-37); BILIRUBIN,TOTAL 0.2 MG/DL (0.2-1.0); BLOOD UREA NITROGEN 13 MG/DL (7-18); CALCIUM LEVEL 8.4 MG/DL (8.5-10.1); CARBON DIOXIDE LEVEL 24 MEQ/L (21-32); CHLORIDE LEVEL 109 MEQ/L (98-107); CHOLESTEROL LEVEL 205 MG/DL (<200); CHOLESTEROL RISK RATIO 3.727 (<5); CREATININE FOR GFR 0.76 MG/DL (0.55-1.30); GLOMERULAR FILTRATION RATE > 60.0 (>58); GLUCOSE, FASTING 112 MG/DL (70-100); HDL CHOLESTEROL 55 MG/DL (>40); LDL CHOLESTEROL 128.6 MG/DL (<100); NON-HDL-C 150 MG/DL; POTASSIUM SERUM 4.2 MEQ/L (3.5-5.1); SODIUM LEVEL 142 MEQ/L (136-145); TOTAL PROTEIN 6.6 GM/DL (6.4-8.2); TRIGLYCERIDES LEVEL 107 MG/DL (<150)
== END ==
LOC: M LAB REF 13:04
DX: E03.9 Hypothyroidism, unspecified (principal)

== ENCOUNTER → 2018-06-18 | Outpatient (REF) | payer OTHER ==
[2018-06-20 14:20] LABS: HPV HYBRID CAPTURE II Positive (Negative)
== END ==
LOC: M LAB REF 13:50
DX: Z12.4 Encounter for screening for malignant neoplasm of cervix (principal)
CPT/HCPCS: 88142

== ENCOUNTER → 2018-08-06 | Outpatient (CLI) | payer MEDICAID ==
[~2018-08-06] MED LIST changes: +ISOVUE-370 76% 100ML VIAL (Q9967) As Ordered; -METHACHOLINE KIT (J7674) INH
== END ==
LOC: M RAD 14:16
DX: R22.1 Localized swelling, mass and lump, neck (principal)
CPT/HCPCS: Q9967

== ENCOUNTER → 2019-03-20 | Outpatient (REF) | payer OTHER, MEDICAID ==
[~2019-03-20] MED LIST changes: +ALBU17IN INH; +IBUP-1114 PO; -ISOVUE-370 76% 100ML VIAL (Q9967) As Ordered; +MAPA500T2 PO
[2019-03-20 13:39] LABS: BASO # 0.1 10^3/uL (0.0-0.2); BASO % 0.7 % (0.0-1.0); EOS # 0.3 10^3/uL (0.0-0.50); EOS % 4.6 % (0.0-3.0); HEMATOCRIT 34.8 % (36.0-47.0); HEMOGLOBIN 10.7 g/dl (12.0-15.5); LYMPH # 1.8 10^3/uL (1.5-4.5); LYMPH % 26.2 % (24.0-44.0); MEAN CORPUSCULAR HEMOGLOBIN 24.7 pg (27.0-33.0); MEAN CORPUSCULAR HGB CONC 30.7 g/dl (32.0-36.5); MEAN CORPUSCULAR VOLUME 80.2 fl (80.0-96.0); MONO # 0.5 10^3/uL (0.0-0.8); MONO % 7.5 % (0.0-5.0); NEUTROPHILS # 4.1 10^3/uL (1.8-7.7); NEUTROPHILS % 60.7 % (36.0-66.0); PLATELET COUNT, AUTOMATED 460 10^3/uL (150-450); RED BLOOD COUNT 4.34 10^6/uL (4.00-5.40); WHITE BLOOD COUNT 6.8 10^3/uL (4.0-10.0)
[2019-03-20 13:52] LABS: ALBUMIN 3.3 GM/DL (3.2-5.2); ALT/SGPT 15 U/L (12-78); BILIRUBIN,TOTAL 0.2 MG/DL (0.2-1.0); BLOOD UREA NITROGEN 10 MG/DL (7-18); CALCIUM LEVEL 8.7 MG/DL (8.5-10.1); CARBON DIOXIDE LEVEL 24 MEQ/L (21-32); CHLORIDE LEVEL 107 MEQ/L (98-107); CHOLESTEROL LEVEL 206 MG/DL (<200); CHOLESTEROL RISK RATIO 3.322 (<5); CREATININE FOR GFR 0.74 MG/DL (0.55-1.30); GLOMERULAR FILTRATION RATE > 60.0 (>58); GLUCOSE, FASTING 85 MG/DL (70-100); HDL CHOLESTEROL 62 MG/DL (>40); LDL CHOLESTEROL 130 MG/DL (<100); NON-HDL-C 144 MG/DL; POTASSIUM SERUM 4.7 MEQ/L (3.5-5.1); SODIUM LEVEL 137 MEQ/L (136-145); TOTAL PROTEIN 7.1 GM/DL (6.4-8.2); TRIGLYCERIDES LEVEL 69 MG/DL (<150)
== END ==
LOC: M LAB REF 12:52
PROVIDERS: ATTEND Family Medicine Addiction Medicine
DX: R53.83 Other fatigue (principal); F41.1 Generalized anxiety disorder

== ENCOUNTER → 2019-04-02 | Outpatient (CLI) | payer OTHER, MEDICAID | LOC: M LAB 11:09 | PROVIDERS: ATTEND Advanced Practice Midwife | DX: N91.1 Secondary amenorrhea (principal) ==

== ENCOUNTER → 2019-04-05 | Outpatient (CLI) | payer OTHER, MEDICAID | LOC: M LAB 15:05 | PROVIDERS: ATTEND Advanced Practice Midwife | DX: N91.1 Secondary amenorrhea (principal) ==

== ENCOUNTER → 2019-04-10 | Outpatient (CLI) | payer OTHER, MEDICAID | LOC: M LAB 15:44 | PROVIDERS: ATTEND Advanced Practice Midwife | DX: N91.1 Secondary amenorrhea (principal) ==

== ENCOUNTER 2019-04-14 03:37 | Emergency (ER) | payer MEDICAID, OTHER ==
[~2019-04-14] VITALS: Ht 177.8 cm; Wt 86.4 kg
[2019-04-14 04:31] LABS: BASO # 0.1 10^3/uL (0.0-0.2); BASO % 0.4 % (0.0-1.0); EOS # 0.2 10^3/uL (0.0-0.50); EOS % 1.7 % (0.0-3.0); HEMOGLOBIN 10.7 g/dl (12.0-15.5); LYMPH # 2.2 10^3/uL (1.5-4.5); LYMPH % 18.3 % (24.0-44.0); MEAN CORPUSCULAR HEMOGLOBIN 24.8 pg (27.0-33.0); MEAN CORPUSCULAR HGB CONC 31.5 g/dl (32.0-36.5); MEAN CORPUSCULAR VOLUME 78.7 fl (80.0-96.0); MONO # 0.8 10^3/uL (0.0-0.8); NEUTROPHILS # 8.7 10^3/uL (1.8-7.7); NEUTROPHILS % 72.4 % (36.0-66.0); PLATELET COUNT, AUTOMATED 418 10^3/uL (150-450); RED BLOOD COUNT 4.32 10^6/uL (4.00-5.40); WHITE BLOOD COUNT 12.1 10^3/uL (4.0-10.0)
[2019-04-14 05:03] VITALS: BP 120/58
[2019-04-14] MEDS ORDERED: RHOGAM 300 MCG (1500 IU) INJ (J2790) IM ONE (05:30)
--- NOTE | 2019-04-14 05:30 | REPVR ---
EXAM: US First Trimester, Transabdominal EXAM DATE/TIME: 04/14/2019 4:06 AM CLINICAL HISTORY: 43 years old, female; Lmp or gestational age (in weeks): 03/03/19; Other: Vaginal bleeding; TECHNIQUE: Imaging protocol: Real-time transabdominal obstetrical ultrasound of the maternal pelvis and a first trimester , less than 14 weeks 0 days, with image documentation. The patient declined transvaginal imaging. COMPARISON: No relevant prior studies available. FINDINGS: GESTATION: Gestation: No intrauterine gestational sac is identified. Heart rate: Not identified. Placenta: Not identified. Amniotic fluid: Not identified. BIOMETRY: Estimated gestational age: No gestation identified. MATERNAL: Uterus: The uterus measures 10.8 x 5.5 x 6.7 cm. The echogenicity of the uterus is heterogeneous. The internal architecture of the uterus is not well delineated. Cervix: Grossly unremarkable. Limited visibility. Right adnexa: The right ovary was sought but not identified. Left adnexa: The left ovary was sought but not identified. Intraperitoneal: No significant fluid is seen in the cul-de-sac. IMPRESSION: 1. Relatively poor visibility of the pelvic organs. The patient declined transvaginal imaging. No intrauterine gestational sac identified. 2. No free fluid or suspicious adnexal findings, but an ectopic is not excluded. Electronically signed by: Camille Bowers On 04/14/2019 05:30:17 AM
== END 2019-04-14 06:08 | disposition home or self-care (01) ==
LOC: M ED 03:37
DX: O03.4 Incomplete spontaneous abortion without complication (principal); Z88.5 Allergy status to narcotic agent
CPT/HCPCS: 76801; 81001; 84702; 85025; 86850; 86901; 87086; 96372; 99283; J2790

== ENCOUNTER → 2019-04-26 | Outpatient (CLI) | payer OTHER | LOC: M LAB 12:59 | PROVIDERS: ATTEND Advanced Practice Midwife | DX: O03.9 Complete or unspecified spontaneous abortion without complication (principal) ==

== ENCOUNTER → 2019-07-16 | Outpatient (REF) | payer OTHER ==
[2019-07-16 17:36] LABS: BASO # 0.1 10^3/uL (0.0-0.2); BASO % 0.7 % (0.0-1.0); EOS # 0.3 10^3/uL (0.0-0.5); EOS % 3.9 % (0.0-3.0); HEMATOCRIT 37.3 % (36.0-47.0); HEMOGLOBIN 11.6 g/dl (12.0-15.5); LYMPH # 1.7 10^3/uL (1.5-5.0); LYMPH % 24.9 % (24.0-44.0); MEAN CORPUSCULAR HEMOGLOBIN 25.4 pg (27.0-33.0); MEAN CORPUSCULAR HGB CONC 31.1 g/dl (32.0-36.5); MEAN CORPUSCULAR VOLUME 81.6 fl (80.0-96.0); MONO # 0.6 10^3/uL (0.0-0.8); NEUTROPHILS # 4.3 10^3/uL (1.5-8.5); NEUTROPHILS % 62.4 % (36.0-66.0); PLATELET COUNT, AUTOMATED 309 10^3/uL (150-450); RED BLOOD COUNT 4.57 10^6/uL (4.00-5.40); WHITE BLOOD COUNT 6.9 10^3/uL (4.0-10.0)
[2019-07-16 17:56] LABS: ALBUMIN 3.6 GM/DL (3.2-5.2); ALT/SGPT 15 U/L (12-78); BILIRUBIN,TOTAL 0.3 MG/DL (0.2-1.0); BLOOD UREA NITROGEN 12 MG/DL (7-18); CARBON DIOXIDE LEVEL 25 MEQ/L (21-32); CHLORIDE LEVEL 106 MEQ/L (98-107); CHOLESTEROL LEVEL 233 MG/DL (<200); CREATININE FOR GFR 0.74 MG/DL (0.55-1.30); FREE T4 1.16 NG/DL (0.76-1.46); GLOMERULAR FILTRATION RATE > 60.0 (>58); GLUCOSE, FASTING 87 MG/DL (70-100); HDL CHOLESTEROL 64 MG/DL (>40); LDL CHOLESTEROL 139 MG/DL (<100); NON-HDL-C 169 MG/DL; POTASSIUM SERUM 4.7 MEQ/L (3.5-5.1); SODIUM LEVEL 138 MEQ/L (136-145); THYROID STIMULATING HORMONE 0.313 uIU/ML (0.358-3.740); TOTAL PROTEIN 7.6 GM/DL (6.4-8.2); TRIGLYCERIDES LEVEL 150 MG/DL (<150)
[2019-07-16 20:00] LABS: HEMOGLOBIN A1c 5.6 %
== END ==
LOC: M LAB REF 16:36
PROVIDERS: ATTEND Nurse Practitioner Family
DX: E03.9 Hypothyroidism, unspecified (principal); Z13.9 Encounter for screening, unspecified

== ENCOUNTER → 2019-10-08 | Outpatient (REF) | payer OTHER ==
[2019-10-08 13:23] LABS: CHOLESTEROL RISK RATIO 3.644 (<5); FREE T4 1.02 NG/DL (0.76-1.46); THYROID STIMULATING HORMONE 1.91 uIU/ML (0.358-3.740)
== END ==
LOC: M LAB REF 12:31
PROVIDERS: ATTEND Nurse Practitioner Family
DX: E78.5 Hyperlipidemia, unspecified (principal); E03.9 Hypothyroidism, unspecified

== ENCOUNTER → 2020-01-16 | Outpatient (REF) | payer OTHER, MEDICAID ==
[2020-01-16 13:21] LABS: BASO # 0.1 10^3/uL (0.0-0.2); BASO % 0.8 % (0.0-1.0); EOS # 0.3 10^3/uL (0.0-0.5); HEMATOCRIT 37.5 % (36.0-47.0); HEMOGLOBIN 11.8 g/dl (12.0-15.5); LYMPH % 26.5 % (24.0-44.0); MEAN CORPUSCULAR HEMOGLOBIN 26.2 pg (27.0-33.0); MEAN CORPUSCULAR HGB CONC 31.5 g/dl (32.0-36.5); MEAN CORPUSCULAR VOLUME 83.1 fl (80.0-96.0); MONO # 0.6 10^3/uL (0.0-0.8); MONO % 7.7 % (0.0-5.0); NEUTROPHILS # 4.7 10^3/uL (1.5-8.5); NEUTROPHILS % 60.7 % (36.0-66.0); PLATELET COUNT, AUTOMATED 414 10^3/uL (150-450); RED BLOOD COUNT 4.51 10^6/uL (4.00-5.40); WHITE BLOOD COUNT 7.7 10^3/uL (4.0-10.0)
[2020-01-16 13:27] LABS: ALBUMIN 3.2 GM/DL (3.2-5.2); ALT/SGPT 17 U/L (12-78); BILIRUBIN,TOTAL 0.2 MG/DL (0.2-1.0); BLOOD UREA NITROGEN 12 MG/DL (7-18); CALCIUM LEVEL 8.7 MG/DL (8.5-10.1); CARBON DIOXIDE LEVEL 24 MEQ/L (21-32); CHLORIDE LEVEL 108 MEQ/L (98-107); CHOLESTEROL LEVEL 222 MG/DL (<200); CHOLESTEROL RISK RATIO 4.352 (<5); CREATININE FOR GFR 0.66 MG/DL (0.55-1.30); FREE T4 0.82 NG/DL (0.76-1.46); GLOMERULAR FILTRATION RATE > 60.0 (>58); GLUCOSE, FASTING 91 MG/DL (70-100); HDL CHOLESTEROL 51 MG/DL (>40); LDL CHOLESTEROL 145 MG/DL (<100); NON-HDL-C 171 MG/DL; POTASSIUM SERUM 4.7 MEQ/L (3.5-5.1); SODIUM LEVEL 138 MEQ/L (136-145); TOTAL PROTEIN 6.6 GM/DL (6.4-8.2); TRIGLYCERIDES LEVEL 129 MG/DL (<150)
[2020-01-16 13:29] LABS: TOTAL 25(OH) VITAMIN D 17.4 NG/ML (30.0-100.0)
[2020-01-16 13:48] LABS: HEMOGLOBIN A1c 5.5 %
== END ==
LOC: M LAB REF 12:16
PROVIDERS: ATTEND Nurse Practitioner Family
DX: E66.3 Overweight (principal); E78.5 Hyperlipidemia, unspecified; Z13.9 Encounter for screening, unspecified; F17.200 Nicotine dependence, unspecified, uncomplicated

== ENCOUNTER → 2020-03-11 | Outpatient (REF) | payer OTHER | LOC: M LAB REF 17:53 | PROVIDERS: ATTEND Dermatology | DX: D22.39 Melanocytic nevi of other parts of face (principal) ==

== ENCOUNTER → 2020-07-28 | Outpatient (REF) | payer OTHER, MEDICAID ==
[2020-07-28 12:21] LABS: FREE T4 0.85 NG/DL (0.76-1.46); THYROID STIMULATING HORMONE 3.55 uIU/ML (0.358-3.740)
== END ==
LOC: M LAB REF 11:45
PROVIDERS: ATTEND Nurse Practitioner Family
DX: E03.9 Hypothyroidism, unspecified (principal)

== ENCOUNTER → 2020-08-07 | Outpatient (REF) | payer OTHER, MEDICAID ==
[2020-08-07 13:38] LABS: APPEARANCE, URINE CLOUDY (CLEAR); BACTERIA, URINE AUTO 1+ (NEGATIVE); BILIRUBIN, URINE AUTO NEGATIVE (NEGATIVE); BLOOD, URINE BLOOD NEGATIVE (NEGATIVE); COLOR, URINE AMBER (YELLOW); GLUCOSE, URINE (UA) AUTO NEGATIVE (NEGATIVE); KETONE, URINE AUTO TRACE mg/dL (NEGATIVE); LEUKOCYTE ESTERASE, URINE AUTO NEGATIVE (NEGATIVE); MUCUS, URINE LARGE (NEGATIVE); NITRITE, URINE AUTO NEGATIVE (NEGATIVE); PROTEIN, URINE AUTO NEGATIVE (NEGATIVE); RBC, URINE AUTO 1 /HPF (0-3); SPECIFIC GRAVITY URINE AUTO 1.021 (1.002-1.035); SQUAMOUS EPITHELIAL CELL UR AU 14 /HPF (0-6); UROBILINOGEN, URINE AUTO 0.2 mg/dL (0.0-2.0); WBC, URINE AUTO 1 /HPF (0-3)
[2020-08-07 13:42] LABS: BASO # 0.1 10^3/uL (0.0-0.2); BASO % 1.1 % (0.0-1.0); EOS # 0.3 10^3/uL (0.0-0.5); EOS % 3.9 % (0.0-3.0); HEMATOCRIT 38.3 % (36.0-47.0); HEMOGLOBIN 11.7 g/dl (12.0-15.5); LYMPH # 2.1 10^3/uL (1.5-5.0); LYMPH % 27.8 % (24.0-44.0); MEAN CORPUSCULAR HEMOGLOBIN 26.1 pg (27.0-33.0); MEAN CORPUSCULAR HGB CONC 30.5 g/dl (32.0-36.5); MEAN CORPUSCULAR VOLUME 85.3 fl (80.0-96.0); MONO # 0.6 10^3/uL (0.0-0.8); MONO % 8.5 % (0.0-5.0); NEUTROPHILS # 4.3 10^3/uL (1.5-8.5); NEUTROPHILS % 58.4 % (36.0-66.0); PLATELET COUNT, AUTOMATED 441 10^3/uL (150-450); RED BLOOD COUNT 4.49 10^6/uL (4.00-5.40); WHITE BLOOD COUNT 7.4 10^3/uL (4.0-10.0)
[2020-08-07 13:57] LABS: HEMOGLOBIN A1c 5.6 %
[2020-08-07 14:03] LABS: ALBUMIN 3.5 GM/DL (3.2-5.2); ALT/SGPT 13 U/L (12-78); BILIRUBIN,TOTAL 0.4 MG/DL (0.2-1.0); BLOOD UREA NITROGEN 8 MG/DL (7-18); CALCIUM LEVEL 9.1 MG/DL (8.5-10.1); CARBON DIOXIDE LEVEL 27 MEQ/L (21-32); CHLORIDE LEVEL 107 MEQ/L (98-107); CHOLESTEROL LEVEL 240 MG/DL (<200); GLOMERULAR FILTRATION RATE > 60.0 (>58); GLUCOSE, FASTING 89 MG/DL (70-100); HDL CHOLESTEROL 62 MG/DL (>40); LDL CHOLESTEROL 162 MG/DL (<100); NON-HDL-C 178 MG/DL; POTASSIUM SERUM 4.1 MEQ/L (3.5-5.1); SODIUM LEVEL 141 MEQ/L (136-145); TOTAL PROTEIN 7.1 GM/DL (6.4-8.2); TRIGLYCERIDES LEVEL 80 MG/DL (<150)
[2020-08-07 14:07] LABS: TOTAL 25(OH) VITAMIN D 41.3 NG/ML (30.0-100.0)
== END ==
LOC: M LAB REF 12:41
PROVIDERS: ATTEND Nurse Practitioner Family
DX: E03.9 Hypothyroidism, unspecified (principal); E55.9 Vitamin D deficiency, unspecified; K21.9 Gastro-esophageal reflux disease without esophagitis

== ENCOUNTER → 2020-11-05 | Outpatient (REF) | payer OTHER, MEDICAID ==
[2020-11-05 19:13] LABS: ALBUMIN 3.4 GM/DL (3.2-5.2); ALT/SGPT 16 U/L (12-78); BILIRUBIN,TOTAL 0.2 MG/DL (0.2-1.0); BLOOD UREA NITROGEN 14 MG/DL (7-18); CALCIUM LEVEL 8.8 MG/DL (8.5-10.1); CARBON DIOXIDE LEVEL 29 MEQ/L (21-32); CHLORIDE LEVEL 106 MEQ/L (98-107); CHOLESTEROL LEVEL 238 MG/DL (<200); CREATININE FOR GFR 0.65 MG/DL (0.55-1.30); GLOMERULAR FILTRATION RATE > 60.0 (>58); GLUCOSE, FASTING 86 MG/DL (70-100); HDL CHOLESTEROL 70 MG/DL (>40); LDL CHOLESTEROL 154 MG/DL (<100); NON-HDL-C 168 MG/DL; POTASSIUM SERUM 4.4 MEQ/L (3.5-5.1); SODIUM LEVEL 142 MEQ/L (136-145); TOTAL PROTEIN 6.8 GM/DL (6.4-8.2); TRIGLYCERIDES LEVEL 70 MG/DL (<150)
[2020-11-05 19:17] LABS: TOTAL 25(OH) VITAMIN D 30.5 NG/ML (30.0-100.0)
== END ==
LOC: M LAB REF 16:22
PROVIDERS: ATTEND Family Medicine Addiction Medicine
DX: E03.9 Hypothyroidism, unspecified (principal); E55.9 Vitamin D deficiency, unspecified

== ENCOUNTER → 2021-01-05 | Outpatient (REF) | payer OTHER, MEDICAID | LOC: M SFHCWAGY 10:07 | PROVIDERS: ATTEND Advanced Practice Midwife | DX: Z12.4 Encounter for screening for malignant neoplasm of cervix (principal); R87.810 Cervical high risk human papillomavirus (HPV) DNA test positive ==

== ENCOUNTER → 2021-01-29 | Outpatient (CLI) | payer OTHER ==
--- NOTE | 2021-01-29 09:57 | REP ---
INDICATION: ABD PAIN, MENORRHAGIA COMPARISON: 05/18/2017 TECHNIQUE: Real time B-mode issa scale ultrasound examination using curved array transducer. FINDINGS: Liver, spleen, and pancreas are normal in contour, size, echogenicity, and overall appearance. No focal hepatic, splenic or pancreatic lesions are identified. Gallbladder is normal without gallstones, wall thickening, or pericholecystic fluid. No biliary ductal dilatation is appreciated and the common bile duct measures 4.0 mm diameter. The bilateral kidneys are normal in reniform shape without hydronephrosis or obvious abnormality. Right kidney measures 10.3 x 5.2 x 4.6 cm with 4.3 x 3.6 x 3.1 cm cyst. Left kidney measures 11.1 x 8.4 x 5.9 cm. Abdominal aorta is age-appropriate and measures 2 cm maximal diameter. No obvious ascites. IMPRESSION: Essentially normal age-appropriate complete abdominal ultrasound. <Electronically signed by Henrik Koch > 01/29/21 [id number]
--- NOTE | 2021-01-29 11:10 | REP ---
INDICATION: ABD PAIN, MENORRHAGIA COMPARISON: 07/05/2017 TECHNIQUE: Transabdominal pelvic ultrasound followed by transvaginal examination for better evaluation of the endometrium and adnexa with color Doppler evaluation of the ovaries. FINDINGS: Bladder is unremarkable and measures 9.3 x 6.9 x 4.8 cm. Normal anteverted uterus measures 9.9 x 5.9 x 6.5 cm. The endometrial complex measures 16.9 mm thickness. No discrete uterine or endometrial abnormalities are appreciated. Bilateral ovaries are normal in appearance and vascularity without evidence for torsion. Right ovary measures 2.3 x 2.1 x 2.6 cm; R I = 0.69. Left ovary measures 3.6 x 2.1 x 2.1 cm; R I = 0.48. No pelvic fluid or adnexal mass lesion. IMPRESSION: Normal pelvic ultrasound. <Electronically signed by Henrik Koch > 01/29/21 [id number]
== END ==
LOC: M RAD 08:50
PROVIDERS: ATTEND Advanced Practice Midwife
DX: R10.9 Unspecified abdominal pain (principal); N92.0 Excessive and frequent menstruation with regular cycle

== ENCOUNTER → 2022-01-12 | Outpatient (REF) | payer OTHER | LOC: M SFHCWAGY 18:52 | PROVIDERS: ATTEND Advanced Practice Midwife | DX: Z12.4 Encounter for screening for malignant neoplasm of cervix (principal); R87.810 Cervical high risk human papillomavirus (HPV) DNA test positive ==

== ENCOUNTER → 2022-01-12 | Outpatient (REF) | payer OTHER ==
[2022-01-12 22:16] LABS: GC DNA AMPLIFICATION NEGATIVE (NEGATIVE)
== END ==
LOC: M SFHCWAGY 16:53
PROVIDERS: ATTEND Advanced Practice Midwife
DX: Z01.419 Encounter for gynecological examination (general) (routine) without abnormal findings (principal); Z11.3 Encounter for screening for infections with a predominantly sexual mode of transmission

== ENCOUNTER → 2022-01-12 | Outpatient (CLI) | payer OTHER | LOC: M WHC 14:18 | PROVIDERS: ATTEND Advanced Practice Midwife | DX: Z12.31 Encounter for screening mammogram for malignant neoplasm of breast (principal); Z80.3 Family history of malignant neoplasm of breast ==

== ENCOUNTER → 2022-02-03 | Outpatient (REF) | payer OTHER ==
[2022-02-03 20:46] LABS: RSV AMPLIFICATION NEGATIVE (NEGATIVE)
== END ==
LOC: M LAB REF 19:45
PROVIDERS: ATTEND Physician Assistant
DX: R50.9 Fever, unspecified (principal)

== ENCOUNTER → 2022-02-14 | Outpatient (REF) | payer OTHER | LOC: M SFHCWAGY 10:05 | PROVIDERS: ATTEND Obstetrics & Gynecology | DX: R87.810 Cervical high risk human papillomavirus (HPV) DNA test positive (principal) ==

== ENCOUNTER → 2022-06-08 | Outpatient (REF) | payer OTHER | LOC: M PLALAB 09:03 | PROVIDERS: ATTEND Obstetrics & Gynecology | DX: D06.9 Carcinoma in situ of cervix, unspecified (principal); N88.8 Other specified noninflammatory disorders of cervix uteri ==

== ENCOUNTER → 2022-09-02 | Outpatient (REF) | payer OTHER ==
[2022-09-02 15:21] LABS: ALBUMIN 3.5 G/DL (3.2-5.2); ALKALINE PHOSPHATASE 70 U/L (46-116); ALT/SGPT 12 U/L (7.0-40); AST/SGOT 14 U/L (<34); BASO # 0.1 10^3/uL (0.0-0.2); BASO % 0.8 % (0.0-1.0); BILIRUBIN,TOTAL 0.2 MG/DL (0.3-1.2); BLOOD UREA NITROGEN 13 MG/DL (9-23); CALCIUM LEVEL 9.2 MG/DL (8.5-10.1); CARBON DIOXIDE LEVEL 21 MMOL/L (20-31); CHLORIDE LEVEL 107 MMOL/L (98-107); CHOLESTEROL LEVEL 235 MG/DL (<200); CHOLESTEROL RISK RATIO 3.46 (<5); CREATININE FOR GFR 0.61 MG/DL (0.55-1.30); EOS # 0.3 10^3/uL (0.0-0.5); EOS % 4.9 % (0.0-3.0); GLOMERULAR FILTRATION RATE > 60.0 (>58); GLUCOSE, FASTING 96 MG/DL (60-100); HDL CHOLESTEROL 67.9 MG/DL (>40); HEMATOCRIT 34.7 % (36.0-47.0); HEMOGLOBIN 10.7 g/dl (12.0-15.5); LDL CHOLESTEROL 149.5 MG/DL (<100); LYMPH # 1.9 10^3/uL (1.5-5.0); MEAN CORPUSCULAR HEMOGLOBIN 25.3 pg (27.0-33.0); MEAN CORPUSCULAR HGB CONC 30.8 g/dl (32.0-36.5); MONO # 0.6 10^3/uL (0.0-0.8); MONO % 9.9 % (2.0-8.0); NEUTROPHILS # 3.2 10^3/uL (1.5-8.5); NEUTROPHILS % 53.1 % (36.0-66.0); NON-HDL-C 167 MG/DL; PLATELET COUNT, AUTOMATED 443 10^3/uL (150-450); POTASSIUM SERUM 4.7 MMOL/L (3.5-5.1); RED BLOOD COUNT 4.23 10^6/uL (4.00-5.40); SODIUM LEVEL 138 MMOL/L (136-145); TOTAL PROTEIN 6.9 G/DL (5.7-8.2); TRIGLYCERIDES LEVEL 88 MG/DL (<150); WHITE BLOOD COUNT 6.1 10^3/uL (4.0-10.0)
[2022-09-02 15:22] LABS: THYROID STIMULATING HORMONE 1.506 uIU/ML (0.55-4.78)
[2022-09-02 15:47] LABS: HEMOGLOBIN A1c 5.2 % (4.0-6.0)
== END ==
LOC: M LAB REF 14:38
PROVIDERS: ATTEND Nurse Practitioner Family
DX: E66.3 Overweight (principal)

== ENCOUNTER → 2022-12-30 | Outpatient (REF) | payer OTHER ==
[2022-12-30 14:22] LABS: CHOLESTEROL RISK RATIO 3.29 (<5); HDL CHOLESTEROL 74.6 MG/DL (>40); LDL CHOLESTEROL 155.6 MG/DL (<100); NON-HDL-C 171.4 MG/DL
== END ==
LOC: M LAB REF 11:58
PROVIDERS: ATTEND Nurse Practitioner Family
DX: E78.5 Hyperlipidemia, unspecified (principal)

== ENCOUNTER → 2023-02-27 | Outpatient (REF) | payer OTHER ==
[2023-02-27 18:00] LABS: BASO # 0.1 10^3/uL (0.0-0.2); EOS # 0.3 10^3/uL (0.0-0.5); EOS % 4.6 % (0.0-3.0); HEMATOCRIT 36.4 % (36.0-47.0); HEMOGLOBIN 10.9 g/dl (12.0-15.5); LYMPH # 2.1 10^3/uL (1.5-5.0); LYMPH % 29.9 % (24.0-44.0); MEAN CORPUSCULAR HEMOGLOBIN 24.4 pg (27.0-33.0); MEAN CORPUSCULAR HGB CONC 29.9 g/dl (32.0-36.5); MEAN CORPUSCULAR VOLUME 81.4 fl (80.0-96.0); MONO # 0.7 10^3/uL (0.0-0.8); MONO % 10.3 % (2.0-8.0); NEUTROPHILS # 3.8 10^3/uL (1.5-8.5); NEUTROPHILS % 54.1 % (36.0-66.0); PLATELET COUNT, AUTOMATED 435 10^3/uL (150-450); RED BLOOD COUNT 4.47 10^6/uL (4.00-5.40)
[2023-02-27 18:25] LABS: THYROID STIMULATING HORMONE 12.679 uIU/ML (0.55-4.78)
[2023-02-27 18:27] LABS: ALBUMIN 3.7 G/DL (3.2-5.2); ALKALINE PHOSPHATASE 81 U/L (46-116); ALT/SGPT 13 U/L (7.0-40); AST/SGOT 11 U/L (<34); BILIRUBIN,TOTAL 0.2 MG/DL (0.3-1.2); BLOOD UREA NITROGEN 9 MG/DL (9-23); C REACTIVE PROTEIN QUANTITATIV < 0.40 MG/DL (<1.0); CALCIUM LEVEL 8.8 MG/DL (8.5-10.1); CARBON DIOXIDE LEVEL 25 MMOL/L (20-31); CHLORIDE LEVEL 103 MMOL/L (98-107); CREATININE FOR GFR 0.69 MG/DL (0.55-1.30); ERYTHROCYTE SEDIMENTATION RATE 50 mm/hr (0-20); GLOMERULAR FILTRATION RATE > 60.0 (>58); GLUCOSE, FASTING 78 MG/DL (60-100); POTASSIUM SERUM 4.8 MMOL/L (3.5-5.1); SODIUM LEVEL 137 MMOL/L (136-145)
== END ==
LOC: M LAB REF 16:32
PROVIDERS: ATTEND Nurse Practitioner Family
DX: M79.604 Pain in right leg (principal); E03.9 Hypothyroidism, unspecified

== ENCOUNTER → 2023-02-28 | Outpatient (CLI) | payer OTHER | LOC: M RAD 07:38 | PROVIDERS: ATTEND Nurse Practitioner Family | DX: M79.604 Pain in right leg (principal) ==

== ENCOUNTER 2023-03-07 09:25 | Emergency (ER) | payer OTHER ==
[~2023-03-07] VITALS: Ht 177.8 cm; Wt 93.0 kg
[2023-03-07] MEDS ORDERED: ATOR1TAB21 (09:34)
[2023-03-07] MEDS ORDERED: LEVO125T4 (09:34)
[2023-03-07 12:15] VITALS: BP 127/71; TEMP 97; O2SAT 98
[2023-03-07 12:48] LABS: RSV AMPLIFICATION NEGATIVE (NEGATIVE)
[2023-03-07] MEDS: IPRATROPIUM 0.5MG/ALBUTEROL 2.5MG INH SOL UD 3ML (DUONEB) NEB SCH ×3 (13:10→13:24)
[2023-03-07] MEDS ORDERED: PRED20TA PO (14:10)
== END 2023-03-07 14:21 | disposition home or self-care (01) ==
LOC: M ED 09:25
DX: J45.901 Unspecified asthma with (acute) exacerbation (principal); F17.200 Nicotine dependence, unspecified, uncomplicated; Z88.5 Allergy status to narcotic agent; Z79.51 Long term (current) use of inhaled steroids; Z79.899 Other long term (current) drug therapy

== ENCOUNTER → 2023-04-03 | Outpatient (REF) ==
[~2023-04-03] MED LIST changes: +ATOR1TAB21; +LEVO125T4; +PRED20TA PO
== END ==
LOC: M LAB 15:43
PROVIDERS: ATTEND Nurse Practitioner Adult Health
DX: Z02.89 Encounter for other administrative examinations (principal)

== ENCOUNTER → 2023-05-19 | Outpatient (REF) | payer OTHER | LOC: M PLALAB 12:53 | PROVIDERS: ATTEND Advanced Practice Midwife | DX: Z12.4 Encounter for screening for malignant neoplasm of cervix (principal); Z53.9 Procedure and treatment not carried out, unspecified reason ==

== ENCOUNTER → 2023-11-09 | Outpatient (REF) | payer OTHER ==
[2023-11-09 13:05] LABS: BASO # 0.1 10^3/uL (0.0-0.2); BASO % 0.9 % (0.0-1.0); EOS # 0.2 10^3/uL (0.0-0.5); EOS % 3.4 % (0.0-3.0); HEMATOCRIT 37.2 % (36.0-47.0); HEMOGLOBIN 11.6 g/dl (12.0-15.5); LYMPH # 1.9 10^3/uL (1.5-5.0); LYMPH % 27.8 % (24.0-44.0); MEAN CORPUSCULAR HGB CONC 31.2 g/dl (32.0-36.5); MEAN CORPUSCULAR VOLUME 83.4 fl (80.0-96.0); MONO # 0.6 10^3/uL (0.0-0.8); MONO % 8.5 % (2.0-8.0); NEUTROPHILS % 59.3 % (36.0-66.0); PLATELET COUNT, AUTOMATED 379 10^3/uL (150-450); RED BLOOD COUNT 4.46 10^6/uL (4.00-5.40); WHITE BLOOD COUNT 6.7 10^3/uL (4.0-10.0)
[2023-11-09 13:17] LABS: HEMOGLOBIN A1c 5.6 % (4.0-6.0)
[2023-11-09 13:37] LABS: ALBUMIN 3.4 G/DL (3.2-5.2); ALKALINE PHOSPHATASE 88 U/L (46-116); ALT/SGPT 17 U/L (7.0-40); AST/SGOT 10 U/L (<34); BILIRUBIN,TOTAL 0.2 MG/DL (0.3-1.2); BLOOD UREA NITROGEN 11 MG/DL (9-23); CALCIUM LEVEL 8.9 MG/DL (8.5-10.1); CARBON DIOXIDE LEVEL 26 MMOL/L (20-31); CHLORIDE LEVEL 108 MMOL/L (98-107); CHOLESTEROL LEVEL 255 MG/DL (<200); CHOLESTEROL RISK RATIO 3.67 (<5); CREATININE FOR GFR 0.69 MG/DL (0.55-1.30); GLOMERULAR FILTRATION RATE > 60.0 (>58); GLUCOSE, FASTING 71 MG/DL (60-100); HDL CHOLESTEROL 69.3 MG/DL (>40); LDL CHOLESTEROL 166.5 MG/DL (<100); MAGNESIUM LEVEL 1.9 MG/DL (1.8-2.4); NON-HDL-C 185.7 MG/DL; POTASSIUM SERUM 4.4 MMOL/L (3.5-5.1); SODIUM LEVEL 140 MMOL/L (136-145); THYROID STIMULATING HORMONE 4.622 uIU/ML (0.55-4.78); TOTAL 25(OH) VITAMIN D 19.6 NG/ML (20.0-100.0); TOTAL PROTEIN 6.7 G/DL (5.7-8.2); TRIGLYCERIDES LEVEL 96 MG/DL (<150)
== END ==
LOC: M LAB REF 11:39
PROVIDERS: ATTEND Nurse Practitioner Family
DX: E66.3 Overweight (principal); E55.9 Vitamin D deficiency, unspecified

== ENCOUNTER → 2024-05-01 | Outpatient (REF) | payer OTHER ==
[2024-05-01 14:38] LABS: CHOLESTEROL RISK RATIO 3.84 (<5); HDL CHOLESTEROL 63.2 MG/DL (>40); LDL CHOLESTEROL 160.8 MG/DL (<100); NON-HDL-C 179.8 MG/DL
[2024-05-01 14:40] LABS: THYROID STIMULATING HORMONE 5.328 uIU/ML (0.55-4.78)
[2024-05-01 14:41] LABS: FREE T4 1.13 NG/DL (0.89-1.76)
== END ==
LOC: M LAB REF 12:38
PROVIDERS: ATTEND Nurse Practitioner Family
DX: E03.9 Hypothyroidism, unspecified (principal); E78.5 Hyperlipidemia, unspecified

== ENCOUNTER 2024-06-22 18:07 | Emergency (ER) | payer OTHER, SELFPAY ==
[~2024-06-22] VITALS: Ht 167.6 cm; Wt 86.8 kg
[2024-06-22] MEDS ORDERED: OMEP40CA5 (18:32)
[2024-06-22] MEDS ORDERED: HYDR-3363 (18:32)
[2024-06-22] MEDS ORDERED: PRED20TA PO (20:33)
[2024-06-22] MEDS: predniSONE 20 MG TAB PO ONE (20:38)
[2024-06-22] MEDS ORDERED: MELO15TA28 PO (20:39)
[2024-06-22] MEDS: KETOROLAC 60MG 2ML VIAL IM ONE (20:40)
[2024-06-22 21:05] VITALS: BP 134/86; TEMP 97.7; O2SAT 99
== END 2024-06-22 21:09 | disposition home or self-care (01) ==
LOC: M ED 18:07
DX: I73.00 Raynaud's syndrome without gangrene (principal); E03.9 Hypothyroidism, unspecified; E78.5 Hyperlipidemia, unspecified; J45.909 Unspecified asthma, uncomplicated; Z88.5 Allergy status to narcotic agent; Z79.899 Other long term (current) drug therapy
CPT/HCPCS: 73130; 96372; 99283; J1885; J7512

== ENCOUNTER → 2024-07-12 | Outpatient (CLI) | payer OTHER ==
[~2024-07-12] MED LIST changes: +HYDR-3363; +MELO15TA28 PO; +OMEP40CA5
== END ==
LOC: M WUC 15:03
PROVIDERS: ATTEND Nurse Practitioner Family
DX: M79.672 Pain in left foot (principal); J45.909 Unspecified asthma, uncomplicated; M54.50 Low back pain, unspecified

== ENCOUNTER → 2024-08-01 | Outpatient (REF) | payer OTHER ==
[2024-08-01 14:40] LABS: FREE T4 1.24 NG/DL (0.89-1.76)
[2024-08-01 14:41] LABS: THYROID STIMULATING HORMONE 3.91 uIU/ML (0.55-4.78)
== END ==
LOC: M LAB REF 13:42
PROVIDERS: ATTEND Nurse Practitioner Family
DX: E03.9 Hypothyroidism, unspecified (principal)

== ENCOUNTER → 2024-09-05 | Outpatient (CLI) | payer OTHER | LOC: M SOG 07:52 | PROVIDERS: ATTEND Physician Assistant | DX: M79.644 Pain in right finger(s) (principal); Z53.9 Procedure and treatment not carried out, unspecified reason ==

== ENCOUNTER → 2024-10-21 | Outpatient (CLI) | payer OTHER | LOC: M WHC 14:41 | PROVIDERS: ATTEND Advanced Practice Midwife | DX: Z12.31 Encounter for screening mammogram for malignant neoplasm of breast (principal); Z80.3 Family history of malignant neoplasm of breast; R92.333 Mammographic heterogeneous density, bilateral breasts ==

== ENCOUNTER → 2024-12-10 | Outpatient (REF) | payer OTHER ==
[2024-12-10 19:00] LABS: BASO % 0.4 % (0.0-1.0); EOS % 0.2 % (0.0-3.0); HEMATOCRIT 42.4 % (36.0-47.0); HEMOGLOBIN 13.9 g/dl (12.0-15.5); LYMPH # 2.3 10^3/uL (1.5-5.0); LYMPH % 24.8 % (24.0-44.0); MEAN CORPUSCULAR HEMOGLOBIN 29.5 pg (27.0-33.0); MEAN CORPUSCULAR HGB CONC 32.8 g/dl (32.0-36.5); MONO # 0.6 10^3/uL (0.0-0.8); NEUTROPHILS # 6.5 10^3/uL (1.5-8.5); NEUTROPHILS % 68.4 % (36.0-66.0); PLATELET COUNT, AUTOMATED 351 10^3/uL (150-450); RED BLOOD COUNT 4.71 10^6/uL (4.00-5.40); WHITE BLOOD COUNT 9.5 10^3/uL (4.0-10.0)
[2024-12-10 19:17] LABS: ALBUMIN 3.9 G/DL (3.2-5.2); ALKALINE PHOSPHATASE 107 U/L (35-104); ALT/SGPT 22 U/L (7.0-40); AST/SGOT 15 U/L (<34); BILIRUBIN,TOTAL 0.2 MG/DL (0.3-1.2); BLOOD UREA NITROGEN 18 MG/DL (9-23); CALCIUM LEVEL 9.8 MG/DL (8.5-10.1); CARBON DIOXIDE LEVEL 26 MMOL/L (20-31); CHLORIDE LEVEL 104 MMOL/L (98-107); CHOLESTEROL LEVEL 216 MG/DL (<200); CREATININE FOR GFR 0.65 MG/DL (0.55-1.30); GLOMERULAR FILTRATION RATE > 60.0 (>51); GLUCOSE, FASTING 81 MG/DL (60-100); HDL CHOLESTEROL 67.4 MG/DL (>40); LDL CHOLESTEROL 129.6 MG/DL (<100); MAGNESIUM LEVEL 2.3 MG/DL (1.8-2.4); NON-HDL-C 148.6 MG/DL; POTASSIUM SERUM 5.3 MMOL/L (3.5-5.1); SODIUM LEVEL 141 MMOL/L (136-145); TOTAL PROTEIN 8.1 G/DL (5.7-8.2); TRIGLYCERIDES LEVEL 95 MG/DL (<150)
[2024-12-10 19:19] LABS: THYROID STIMULATING HORMONE 3.944 uIU/ML (0.55-4.78); TOTAL 25(OH) VITAMIN D 24.8 NG/ML (20.0-100.0)
[2024-12-10 19:35] LABS: HEMOGLOBIN A1c 5.1 % (4.0-6.0)
== END ==
LOC: M LAB REF 17:55
PROVIDERS: ATTEND Nurse Practitioner Family
DX: E66.3 Overweight (principal); E55.9 Vitamin D deficiency, unspecified

== ENCOUNTER → 2024-12-30 | Outpatient (CLI) | payer OTHER | LOC: M RAD 16:31 | PROVIDERS: ATTEND Nurse Practitioner Adult Health | DX: J43.9 Emphysema, unspecified (principal); N28.89 Other specified disorders of kidney and ureter; F17.218 Nicotine dependence, cigarettes, with other nicotine-induced disorders ==

== ENCOUNTER → 2025-01-11 | Outpatient (CLI) | payer OTHER | LOC: M LAB 08:29 | PROVIDERS: ATTEND Nurse Practitioner Family | DX: R53.83 Other fatigue (principal) ==

== ENCOUNTER 2025-01-17 16:11 | Emergency (ER) | payer OTHER ==
[~2025-01-17] VITALS: Ht 170.2 cm; Wt 83.1 kg
[2025-01-17 18:22] LABS: HEMATOCRIT 41.2 % (36.0-47.0); HEMOGLOBIN 13.2 g/dl (12.0-15.5); MEAN CORPUSCULAR VOLUME 90.5 fl (80.0-96.0); PLATELET COUNT, AUTOMATED 335 10^3/uL (150-450); RED BLOOD COUNT 4.55 10^6/uL (4.00-5.40); WHITE BLOOD COUNT 7.4 10^3/uL (4.0-10.0)
[2025-01-17 18:49] LABS: BLOOD UREA NITROGEN 16 MG/DL (9-23); CARBON DIOXIDE LEVEL 28 MMOL/L (20-31); CHLORIDE LEVEL 106 MMOL/L (98-107); CK-MB VALUE MASS < 1.0 NG/ML (<3.6); CPK CREATINE PHOSPHOKINASE 99 U/L (34-145); CREATININE FOR GFR 0.65 MG/DL (0.55-1.30); GLOMERULAR FILTRATION RATE > 90.0 (>51); GLUCOSE, FASTING 104 MG/DL (60-100); MB/CK RELATIVE INDEX 1.01 (< OR =4); POTASSIUM SERUM 4.2 MMOL/L (3.5-5.1); SODIUM LEVEL 142 MMOL/L (136-145)
[2025-01-17 19:02] LABS: ATYPICAL LYMPH 4 % (0-5); BASOPHILS 1 % (0-1); EOSINOPHILS 1 % (0-3); LYMPHOCYTES 35 % (16-44); MONOCYTES 4 % (0-5); NEUTROPHILS 54 % (28-66)
[2025-01-17 19:03] LABS: PLATELET ESTIMATE NORMAL (NORMAL)
[2025-01-17 20:31] VITALS: BP 141/77; TEMP 97.8; O2SAT 100
[2025-01-17 21:00] LABS: CK-MB VALUE MASS < 1.0 NG/ML (<3.6)
[2025-01-17 21:02] LABS: CPK CREATINE PHOSPHOKINASE 100 U/L (34-145)
== END 2025-01-18 00:08 | disposition home or self-care (01) ==
LOC: M ED 16:11
DX: R07.89 Other chest pain (principal); F17.200 Nicotine dependence, unspecified, uncomplicated; Z79.899 Other long term (current) drug therapy; Z88.5 Allergy status to narcotic agent